=== PATIENT | male | born 1945 | race Caucasian/White ===

== ENCOUNTER 2019-07-30 07:33 | Outpatient (RCR) | payer MEDICARE, SELFPAY ==
--- NOTE | 2019-07-30 07:38 | PTOPEVAL ---
Thank you for referring this patient to [facility]. Please review, sign, date and return this plan of care ISABEL. I agree with and certify that the following plan of care is medically necessary. Referring Physician Date Admitting Provider: Attending Provider: PHYSICIAN NOT ON STAFF Referring Provider: *PT Outpatient Evaluation Start: 07/30/19 07:02 Freq: Status: Active Protocol: Document 07/30/19 07:02 MONIQUE (Rec: 07/30/19 07:29 MONIQUE [email or web address]) Therapy Assessment Status Assessment Status Assessment Status Evaluation Evaluation Information Problem Diagnosis right shoulder bursitis Onset 07/09/19 Subjective Information Pt. reports right shoudler Query Text:As Reported By Patient/ pain began about 3 weeks ago. Family He recalls no particular incident, however states that [place] and requires alot of work . He describes pain with attempting to raise the right arm and on top of the shoulder . He has developed recent left sided neck pain. He reports that pain will wake him if he lays on the right shoulder. He reports that his goal is to develop less right shoulder pain with activity. Prior Level of Function Activity Level (Last 3 Months) Occupation retired Hand Dominance Right Activity of Daily Living Ability Independent Indoor/Home Mobility Independent Community Mobility Independent Stairs Ability Independent Functional Cognition (Planning, Shopping Independent , Taking Medications) Cooking Yes Cleaning Yes Laundry Yes Shopping Yes Driving Yes Pain Assessment Pain Scale Pain Scale Used Numeric (1 - 10) Self Report Pain Assessment Right Shoulder(s) Reported Pain Level 6 Pain Description Sharp Pain Frequency Acute,Continuous Current Pain Intensity 6 Lowest Pain Intensity 6 Greatest Pain Intensity 9 Pain Aggravating Factors Exercise/Activity Pain Relief Interventions Used By Denise Patient Pain Score Pain Score 6: Self Report Upper Extremity Range of Motion General Upper Extremity Range of Motion
--- NOTE | 2019-08-09 09:42 | PCPTNOTE ---
patient called and cancelled due to coronavirus. MARIXA
== END 2019-08-06 17:00 | disposition home or self-care (01) ==
LOC: CHSPT 07:33
DX: M75.51 Bursitis of right shoulder (principal)
CPT/HCPCS: 97014; 97110; 97161; G0283

== ENCOUNTER 2019-12-04 08:54 | Outpatient (RCR) | payer MEDICARE, SELFPAY ==
--- NOTE | 2019-12-04 10:14 | PTOPEVAL ---
Thank you for referring Joey Bob to [facility]. Please review, sign, date and return this plan of care ISABEL. I agree with and certify that the following plan of care is medically necessary. Referring Physician Date Admitting Provider: Attending Provider: PHYSICIAN NOT ON STAFF Referring Provider: *PT Outpatient Evaluation Start: 12/04/19 09:07 Freq: Status: Active Protocol: Document 12/04/19 09:10 [facility] (Rec: 12/04/19 09:42 [facility] [email or web address]) Therapy Assessment Status Assessment Status Assessment Status Evaluation Evaluation Information Problem Diagnosis R shoulder impingement Onset 11/28/19 Additional Evaluation Detail quick dash = 43% functional deficits Subjective Information patient reports he has been Query Text:As Reported By Patient/ having pain in the R serafinudler Family for about 7 months. he reports no injury to the shoulder. he reports gradual onset of worsening pain. he began therapy earlier this year, but reports he stopped due to the coronavirus outbreak. he report he is now ready to [facility]. he report sno change in treatment since his initial bout of therapy. he reports he has increased pain with lifting his R shoulder to his ear, reaching out to his front and side, sleeping, and with trying to lift any weight. Prior Level of Function Comments Additional Prior Level of Function patient reports he is retired. 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 he reports he is able to do all activities, but requires increased time and has significant pain with performance. Pain Assessment Timing of Pain Assessment Timing of Pain Assessment Assessment Pain Scale Pain Scale Used Numeric (1 - 10) Self Report Pain Assessment Right Shoulder(s) Reported Pain Level 7 Pain Description Stabbing Pain Frequency Chronic,Continuous Lowest Pain Intensity 6 Greatest Pain Intensity 8 Pain Score Pain Score 7: Self Report Upper Extremity
== END 2019-12-27 17:02 | disposition home or self-care (01) ==
LOC: CHSPT 08:54
DX: M75.41 Impingement syndrome of right shoulder (principal)
CPT/HCPCS: 97014; 97110; 97140; 97161; G0283

== ENCOUNTER 2024-06-20 09:59 | Outpatient (RCR) | payer MEDICARE, SELFPAY ==
--- NOTE | 2024-06-20 11:11 | OPREHPOC ---
Outpatient Therapy Plan of Care This is a Multidisciplinary Plan of Care that may contain components documented by all disciplines (PT, OT, and ST.) PT Problem 1 PT Problem #1 Knowledge Deficit PT Goal 1 Goal / Goal Update The patient will be independent in a home exercise program. Target Visit 2 PT Problem 2 PT Problem #2 Pain PT Goal 1 Goal / Goal Update The patient will report no greater 1/10 left knee pain with stairs and prolonged ambulation. Target Visit 8 PT Problem 3 PT Problem #3 Impaired Functional Mobility PT Goal 1 Goal / Goal Update The patient will demonstrate 30% or less self perceived disability per the LEFS questionnaire. The patient will demonstrate the ability to ambulate without an AD for 1,000 feet during the 6 minute walk test. The patient will demonstrate the ability to transfer sit to stand for 10 repetitions without use of the UE and no knee pain. Target Visit 8 PT Problem 4 PT Problem #4 Impaired Strength PT Goal 1 Goal / Goal Update The patient will demonstrate 4/5 or greater strength in the left knee and hip to support the knee with ambulation and stair navigation. Target Visit 8 PT Problem 5 PT Problem #5 Impaired Range of Motion PT Goal 1 Goal / Goal Update The patient will demonstrate left knee flexion of 125 degrees or better to improve ability to navigate stairs. Target Visit 8
--- NOTE | 2024-06-20 11:11 | PTOPEVAL1 ---
Assessment and note entered by Echo Fischer, PT Evaluation Information Assessment Status Evaluation Diagnosis L patellofemoral pain ICD-10 Condition Codes (PT) Pain in left knee M25.562,Weakness R53.1 Onset 06/13/24 Subjective Information Joey Bob reports his left knee has given out 3- 4 times over the last month. He reports he was at [facility] for 5 days in early April for a-fib and he was in bed the whole time. He reports he did have the knee give out a few times before the hospitalization as well. He has been using a rollator walker since his knee has been bothering him to prevent falls. He notes he gets sporadic pain in the left kneecap as well. He went to see an work station support specialist and had x-rays taken. He was told he has arthritis but it was not severe. Dr. Arauz thinks he has issues with his kneecap and referred him to PT. Reported Pain Level Pain Score 0: Self Report Assessment PT Clinical Summary Joey Bob presents with left knee weakness and giving out. He has occasional sharp pain around the left patella as well. He has difficulty with walking, stairs, squatting, and lifting. He objectively demonstrates crepitus in the left patellofemoral joint, tenderness on the left distal quadriceps tendon, positive special tests for patellofemoral syndrome, decreased left knee and hip strength, decreased bilateral quadriceps and hamstring flexibility, and decreased left knee flexion AROM. He will benefit from skilled PT to address these limitations. Plan of Care Interventions Electrical Stimulation,Gait Training,Hot Pack/Cold Pack,Intermittent Compression Pump,Manual Therapy ,Neuro Re-education,Patient/Caregiver Education, Therapeutic Activities,Therapeutic Exercise PT Services Indicated Yes Treatment Frequency and 2 times per week for 8 visits Duration These treatments will address the objective and functional deficits as defined above. The patient will be advanced safely and appropriately in order for the patient to progress towards his/her prior level of function. Additional exercises will be introduced and as well as a comprehensive home exercise program upon discharge, if needed, ?to ensure carryover of functional gains achieved in the clinic. This treatment plan has been reviewed and agreement upon by the patient.
--- NOTE | 2024-07-05 09:49 | PCPTNOTE ---
Cancelled sessio due to weather.
--- NOTE | 2024-07-19 11:06 | OPREHPOC ---
Outpatient Therapy Plan of Care This is a Multidisciplinary Plan of Care that may contain components documented by all disciplines (PT, OT, and ST.) PT Problem 1 PT Problem #1 Knowledge Deficit PT Goal 1 Goal / Goal Update The patient will be independent in a home exercise program. Target Visit 2 Progress Met PT Problem 2 PT Problem #2 Pain PT Goal 1 Goal / Goal Update The patient will report no greater 1/10 left knee pain with stairs and prolonged ambulation. Target Visit 8 Progress Not Met PT Problem 3 PT Problem #3 Impaired Functional Mobility PT Goal 1 Goal / Goal Update The patient will demonstrate 30% or less self perceived disability per the LEFS questionnaire. The patient will demonstrate the ability to ambulate without an AD for 1,000 feet during the 6 minute walk test. The patient will demonstrate the ability to transfer sit to stand for 10 repetitions without use of the UE and no knee pain. Target Visit 8 Progress Not Met PT Problem 4 PT Problem #4 Impaired Strength PT Goal 1 Goal / Goal Update The patient will demonstrate 4/5 or greater strength in the left knee and hip to support the knee with ambulation and stair navigation. Target Visit 8 Progress Not Met PT Problem 5 PT Problem #5 Impaired Range of Motion PT Goal 1 Goal / Goal Update The patient will demonstrate left knee flexion of 125 degrees or better to improve ability to navigate stairs. Target Visit 8 Progress Not Met
--- NOTE | 2024-07-19 11:06 | PTOPDC ---
Assessment and note entered by Echo Fischer, PT Evaluation Information Assessment Status Progress Diagnosis L patellofemoral pain ICD-10 Condition Codes (PT) Pain in left knee M25.562,Weakness R53.1 Onset 06/13/24 Subjective Information Joey Bob reports his left knee continues to have pain and it feels like it is going to give out on him. He has not actually had it give out though. He plans to call and make a follow up appointment with his physician due to continued pain. He has been experiencing a sharp and shooting pain in the left knee when he twists his foot in or out. He continues to use a rollator walker when he goes out in public to prevent falls . Reported Pain Level Pain Score 6: Self Report Assessment PT Clinical Summary Joey Bob has completed 7 skilled PT visits for left knee pain. He is reporting no overall change in left knee pain and he still gets a sharp and shooting pain when he twists his foot while walking. He has not fallen but is afraid he will if his knee gives out. He objectively demonstrates left lateral patella tracking with knee extension , pain with strength testing for left knee flexion and extension, decreased left knee AROM, impaired gait, and tenderness at the lateral and distal quadriceps. He plans to follow up with his referring physician regarding ongoing pain and limitations. Plan of Care PT Services Indicated No
== END 2024-07-19 17:24 | disposition home or self-care (01) ==
LOC: CHSPT 09:59
DX: M25.562 Pain in left knee (principal); R53.1 Weakness
CPT/HCPCS: 97110; 97140; 97161

== ENCOUNTER 2025-03-31 17:17 | Emergency (ER) | payer MEDICARE, SELFPAY ==
--- NOTE | ~2025-03-31 | CT_ITS ---
EXAMINATION: CT cervical spine wo con COMPARISON: None HISTORY: Fall, posterior head injury/ headache/ contusion TECHNIQUE: Axial images were obtained through the spine without IV contrast. Coronal, sagittal reconstruction images were obtained from the axial views. CT scan performed using dose optimization techniques including the following automated exposure control; adjustment of mA and/or kV; use of iterative reconstruction technique. Automatic exposure control was used to reduce radiation dose. Permanent radiation dose record is archived to PACS. FINDINGS: The vertebral heights are intact. No fracture or subluxation. There is severe loss of disc height at C3-4 and C5-6 with moderate to severe canal and foraminal stenosis, outpatient MRI is recommended Soft tissues unremarkable. Impression: No acute abnormality. Reviewed, dictated and finalized at location P. ING COACH Impression: No acute abnormality.
--- NOTE | ~2025-03-31 | XR_ITS ---
XR thoracic spine 2V Indication: Fall/chest pain/upper back pain on inspiration Comparison: None Findings: Moderate osteopenia. Moderate loss of vertebral height, no fracture or subluxation. Moderate loss of disc height throughout. Soft tissues unremarkable Impression: No acute abnormality. Reviewed, dictated and finalized at location P. RD WASTE HANDLER Impression: No acute abnormality.
--- NOTE | ~2025-03-31 | XR_ITS ---
EXAMINATION: XR hip RT 2V w AP pelvis, 03/31/2025 17:40 ASP NET C DEVELOPER HISTORY: fall, Rt. hip pain COMPARISON: No comparisons available. Findings: No acute fracture or malalignment. No significant degenerative changes. Soft tissues unremarkable. Impression: No acute fracture or malalignment. Reviewed, dictated and finalized at location P. NET C DEVELOPER Impression: No acute fracture or malalignment.
--- NOTE | ~2025-03-31 | XR_ITS ---
EXAMINATION: XR chest 2V, 03/31/2025 17:40 VISITING TEACHER HISTORY: Fall/chest pain/upper back pain on inspiration COMPARISON: No comparisons available. Technique: 2 views obtained. Findings: The lungs are clear, no effusion. No pneumothorax. Heart is normal size. Mediastinal and hilar contours are within normal limits. Bony thorax no acute abnormality. Impression: No acute cardiopulmonary abnormality. Reviewed, dictated and finalized at location P. TING TEACHER Impression: No acute cardiopulmonary abnormality.
--- NOTE | ~2025-03-31 | CT_ITS ---
EXAMINATION: CT brain wo mariano, 03/31/2025 17:40 PAIL BAILER HISTORY: Fall, posterior head injury/ headache/ contusion COMPARISON: No comparisons available. Technique: Axial images obtained of the brain without contrast. One or more of the following dose reduction techniques were used: automated exposure control, adjustment of the mA and/or kV according to patient size, use of iterative reconstruction technique. Findings: There is a midline focus of subdural hemorrhage abutting the falx on the left side measuring 3 mm. Small amount of subdural hemorrhage layers along the left tentorium. There is no midline shift or mass effect. No additional extra-axial fluid collections. No acute infarct. Mastoid air cells unremarkable. Severe maxillary, ethmoidal and frontal sinusitis with severe sphenoid sinusitis noted with underlying polyp formation suspected. No acute fracture is identified. Right posterior subcutaneous soft tissue swelling is noted with subcutaneous hemorrhage. Impression: Trace midline focus of subdural hemorrhage. No midline shift. No acute fracture. Results discussed with the referring clinician immediately Reviewed, dictated and finalized at location P. BAILER Impression: Trace midline focus of subdural hemorrhage. No midline shift. No acute fracture . Results discussed with the referring clinician immediately
--- OUTSIDE RECORDS SUMMARY | 2025-03-31 17:19 | XMS_ITS | Encounter Summary ---
Author Organization [facility] Healthcare Address [address] [place] [address] Care Team Providers Care Weaving Professor Name Role Phone Lucille Crawford MD Primary Care Provider Lucille Crawford MD Primary Care Provider David Vegas MD Primary Care Provider [phone] Deysi Hein NP Unavailable David Vegas MD Primary Care Provider Encounter Details Date Type Department Care Team (Late st Contact Info) Description 08/04/2020 Telephone [facility] [address] [place] [address] Echo De, Social History Tobacco Use Types Packs/Day Years Used Date Smoking Tobacco: Former Cigarettes 2 31 1 959 - 1990 Smokeless Tobacco: Never Alcohol Use Standard Drinks/Week Comments Yes 12 (1 standard drink = 0.6 oz pu re alcohol) PHQ-2 Answer Date Recorded PHQ-2 Total Score 0 02/04/2020 Sex and Gender Information Value Date Recorded Sex Assigned at Not on file Legal Sex Male 7:49 PM FRUIT ROOM HAND Gender Identity Not on file Sexual Orientation Not on file documented as of this encounter Functional Status * BP Location Answer Date of Assessment Author Left arm 08/05/2020 2:39 PM Jr Bell RMA * BP Location Answer Date of Assessment Author Left arm 08/05/2020 2:39 PM CDT AlvaJr anderson RMA documented as of this encounter Plan of Treatment Not on file documented as of this encounter Visit Diagnoses Not on filedocumented in this encounter Additional Health Concerns Infection Onset Date Last Indicated Resolved Time COVID: Suspected 04/18/2022 04/18/2022 04/18/2022 5:08 PM FRUIT ROOM HAND COVID: Suspected 04/18/2022 04/18/2022 04/19/2022 2:03 AM FRUIT ROOM HAND COVID: Suspected 01/20/2023 01/20/2023 01/20/2023 11:35 AM CDT COVID19 01/20/2023 01/20/2023 01/30/2023 3:05 AM CDT COVID: Recovered Comment:Added based on recent COVID infection. 01/30/2023 01/31/2023 04/30/2023 3:[address] COVID: Suspected 05/17/2023 05/17/2023 05/17/2023 1:17 PM FRUIT ROOM HAND documented as of this encounter Care Teams Weaving Professor Relationship Specialty Start Date End Date Lucille Crawford MD PCP - General Internal Medicine 05/08/19 07/17/23 Lucille Crawford MD PCP - General Internal Medicine 07/18/23 08/06/24 David Vegas MD [address] [place] [address] PCP - General Internal Medicine 08/07/24 08/08/24 David Vegas MD [address] [place] [address] PCP - General Internal Medicine 08/09/24 Deysi Hein NP [address] [place] [address] Nurse Practitioner Internal Medicine 08/07/24 documented as of this encounter
--- OUTSIDE RECORDS SUMMARY | 2025-03-31 17:19 | XMS_ITS | Encounter Summary ---
Author Organization [facility] Address [address] [place] [address] Phone Care Team Providers Care Trimming Operator Name Role Phone Mariya Gunderson MD Primary Care Provider [phone] Miles Rodriguez MD Primary Care Provider [phone] Lucille Crawford MD Primary Care Provider Lucille rCawford MD Primary Care Provider David Vegas MD Primary Care Provider [phone] Deysi Hein NP Unavailable David Vegas MD Primary Care Provider [phone] Encounter Details Date Type Department Care Team (Latest Contact Info) Description 04/24/2017 Orders Only [facility] CONVERSION Scanning, Provider Social History Tobacco Use Types Packs/Day Years Used Date Smoking Tobacco: Former Sex and Gender Information Value Date Recorded Sex Assigned at Not on file Legal Sex Male 7:49 PM GREENHOUSE SUPERINTENDENT Gender Identity Not on file Sexual Orientation Not on file documented as of this encounter Plan of Treatment Not on file documented as of this encounter Procedures Procedure Name Priority Date/Time Associated Diagnosis Comments VASCULAR LABORATORY REPORT 04/24/2017 1:53 PM GREENHOUSE SUPERINTENDENT documented in this encounter Results * VASCULAR LABORATORY REPORT (04/24/2017 1:53 PM GREENHOUSE SUPERINTENDENT) Anatomical Region Laterality Modality Ultrasound us Provider Scanning CV VASCULAR PROCEDURES Final R esult documented in this encounter Visit Diagnoses Not on filedocumented in this encounter Additional Health Concerns Infection Onset Date Last Indicated Resolved Time COVID: Suspected 04/18/2022 04/18/2022 04/18/2022 5:08 PM GREENHOUSE SUPERINTENDENT COVID: Suspected 04/18/2022 04/18/2022 04/19/2022 2:03 AM GREENHOUSE SUPERINTENDENT COVID: Suspected 01/20/2023 01/20/2023 01/20/2023 11:35 AM CDT COVID19 01/20/2023 01/20/2023 01/30/2023 3:05 AM CDT COVID: Recovered Comment:Added based on recent COVID infection. 01/30/2023 01/31/2023 04/30/2023 3:[address] COVID: Suspected 05/17/2023 05/17/2023 05/17/2023 1:17 PM GREENHOUSE SUPERINTENDENT documented as of this encounter Care Teams Trimming Operator Relationship Specialty Start Date End Date Mariya Gunderson MD [address] [facility] [address] [place] [address] PCP - General 04/21/17 04/27/17 [place] [address] [facility] [address] [place] [address] PCP - General 04/28/17 05/07/19 [place] [address] [facility] [address] [place] [address] PCP - General Internal Medicine 05/08/19 07/17/23 [place] [address] [facility] [address] [place] [address] PCP - General Internal Medicine 07/18/23 08/06/24 David Vegas MD [address] [place] [address] PCP - General Internal Medicine 08/07/24 08/08/24 David Vegas MD [address] [facility] [address] [place] [address] PCP - General Internal Medicine 08/09/24 Deysi Hein NP [address] [facility] [address] [place] [address] Nurse Practitioner Internal Medicine 08/07/24 documented as of this encounter
--- OUTSIDE RECORDS SUMMARY | 2025-03-31 17:19 | XMS_ITS | Encounter Summary ---
Author Organization [facility] Healthcare Address [address] [place] [address] Care Team Providers Care Newswriter Name Role Phone Lucille Crawford MD Primary Care Provider David Vegas MD Primary Care Provider [phone] Deysi Hein NP Unavailable David Vegas MD Primary Care Provider [phone] Encounter Details Date Type Department Care Team (Late st Contact Info) Description 05/07/2024 Telephone [facility] [address] [place] [address] Becki Marcos RN Social History Tobacco Use Types Packs/Day Years Used Date Smoking Tobacco: Former Cigarettes 2 1 959 - 1989 Passive Smoke Exposure: Never Smokeless Tobacco: Never Alcohol Use Standard Drinks/Week Comments Yes 12 (1 standard drink = 0.6 oz pu re alcohol) AUDIT-C Answer Date Recorded Q1: How often do you have a drink containing alcohol? Never 04/23/2024 Q2: How many drinks containi ng alcohol do you have on a typical day when you are drinking? Patient does not drink Q3: How often do you have si x or more drinks on one occasion? Never 04/23/2024 PHQ-2 Answer Date Recorded PHQ-2 Total Score (If total score is 3 or more points, staff should administer the PHQ-9) 0 04/23/2024 Personal Safety Answer Date Recorded Have you ever been in or are you currently in a harmful physical or emotional relationship or is someone making you feel afraid or unsafe? Denies 05/09/2024 Sex and Gender Information Value Date Recorded Sex Assigned at Not on file Legal Sex Male 7:49 PM SKATE MAKER Gender Identity Not on file Sexual Orientation Not on file documented as of this encounter Functional Status * Question Answer Date of Assessment Author MAP (mmHg) 87 05/09/2024 10:55 AM SKATE MAKER Aurelia Bob, SYLVESTER * [place]var[place] Fall Risk Question Answer Date of Assessment Author History of Falling 0 05/09/2024 7:[address] Will RN Secondary Diagnosis 15 05/09/2024 7:[address] Horta RN Ambulatory Aids 0 05/09/2024 7:[address] Max RN Intravenous Therapy/Heparin/Saline Lock 20 05/09/2024 7:[address] Wild RN Gait/Transferring 0 05/09/2024 7:[address] Will RN Mental Status 0 05/09/2024 7:[address] Kraus RN Morse Fall Risk Score (Score >= 45 places fall precaution order) 35 05/09/2024 7:26 AM Isabel Will RN Prior Fall Event (Autopopulated from EMR) None found 05/09/2024 7:[address] Will RN * Fall Risk Interventions Question Answer Date of Assessment Author All Low Fall Interventions Applied Yes 05/09/2024 7:[address] Will RN All Moderate Fall Interventions Applied No 05/09/2024 7:[address] Will RN All Moderate Fall Risk Interventions EXCEPT: Fall risk sign with education;Gait belt at bedside;PT eval requested or obtained;OT eval requested or obtained 05/09/2024 7:[address] Will RN All High Fall Risk Interventions Applied No 05/09/2024 7:[address] Will RN All High Risk Interventions EXCEPT: Bed alarm;Chair alarm;Fall risk sign with education 05/09/2024 7:[address] Will RN Reason For Exception(s) not utilized in [facility] 05/09/2024 7:[address] Will RN Reason For Exception(s) not utilized in [facility] 05/09/2024 7:[address] Will RN * Question Answer Date of Assessment Author Skin Color Appropriate for ethnicity 05/09/2024 9:58 AM Silas Cabrera RN Skin Condition/Temp Warm;Dry 05/09/2024 9:58 AM Silas Deshpande RN * Fall Risk Interventions Question Answer Date of Assessment Author All Low Fall Interventions Applied Yes 05/09/2024 7:[address] Will RN All Moderate Fall Interventions Applied No 05/09/2024 7:[address] Will RN All Moderate Fall Risk Interventions EXCEPT: Fall risk sign with education;Gait belt at bedside;PT eval requested or obtained;OT eval requested or obtained 05/09/2024 7:[address] Will RN All High Fall Risk Interventions Applied No 05/09/2024 7:[address] Wlil RN All High Risk Interventions EXCEPT: Bed alarm;Chair alarm;Fall risk sign with education 05/09/2024 7:[address] Will RN Reason For Exception(s) not utilized in [facility] 05/09/2024 7:[address] Will RN Reason For Exception(s) not utilized in [facility] 05/09/2024 7:[address] Will RN * ADL Screening Question Answer Date of Assessment Author Patient's Vision Adequate to Safely Complete Daily Activities Yes 05/09/2024 7:35 AM Isabel Will, SYLVESTER Patient's Judgement Adequate to Safely Complete Daily Activities Yes 05/09/2024 7:35 AM Isabel Will, RN Patient's Memory Adequate to Safely Complete Daily Activities Yes 05/09/2024 7:35 AM Isabel Will, RN Patient Able to Express Needs/Desires Yes 05/09/2024 7:35 AM Isabel Will, RN Dressing Independent 05/09/2024 7:[address] Ramsay, RN Grooming Independent 05/09/2024 7:[address]ay, RN Feeding Independent 05/09/2024 7:[address] Ramsay, RN Bathing Independent 05/09/2024 7:[address] Ramsay, RN Toileting Independent 05/09/2024 7:[address] Ramsay, RN In/Out Bed Independent 05/09/2024 7:[address] Ramsay, RN Walks in Home Independent 05/09/2024 7:[address] Kraus RN Weakness of Legs None 05/09/2024 7:[address] Ding, RN Weakness of Arms/Hands None 05/09/2024 7:[address] Will, SYL[place]STER Hearing - Right Ear Functional 05/09/2024 7:[address] Horta, [place]STER Hearing - Left Ear Functional 05/09/2024 7:[address] Will RN Dominant hand? Right 05/09/2024 7:[address] Rodriguez RN Decline in ADLs in last 2 weeks? No 05/09/2024 7:35 AM Isabel Will, RN * Assistive Devices Question Answer Date of Assessment Author Assistive Devices/DME Dentures upper;Dentures lower;CPAP/BiPAP 05/09/2024 7:[address] Will, SYLVESTER documented as of this encounter Plan of Treatment Not on file documented as of this encounter Visit Diagnoses Not on filedocumented in this encounter Care Teams Newswriter Relationship Specialty Start Date End Date Lucille Crawford MD PCP - General Internal Medicine 07/18/23 08/06/24 David Vegas MD [address] [place] [address] PCP - General Internal Medicine 08/07/24 08/08/24 David Vegas MD [address] [place] [address] PCP - General Internal Medicine 08/09/24 Deysi Hein NP [address] [facility] [address] [place] [address] Nurse Practitioner Internal Medicine 08/07/24 documented as of this encounter
--- OUTSIDE RECORDS SUMMARY | 2025-03-31 17:19 | XMS_ITS | Encounter Summary ---
Author Organization [facility] Address [address] [place] [address] Phone Care Team Providers Care Schedule Planning Manager Name Role Phone Lucille Crawford MD Primary Care Provider Lucille Crawford MD Primary Care Provider David Vegas MD Primary Care Provider [phone] Deysi Hein NP Unavailable David Vegas MD Primary Care Provider [phone] Encounter Details Date Type Department Care Team (Latest Contact Info) Description 02/26/2020 Orders Only MANDUJANO NL SLEEP Scanning, Provider Social History Tobacco Use Types Packs/Day Years Used Date Smoking Tobacco: Former Cigarettes 2 31 1 959 - 1989 Smokeless Tobacco: Never Alcohol Use Standard Drinks/Week Comments Yes 12 (1 standard drink = 0.6 oz pu re alcohol) PHQ-2 Answer Date Recorded PHQ-2 Total Score 0 02/04/2020 Sex and Gender Information Value Date Recorded Sex Assigned at Not on file Legal Sex Male 7:49 PM 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 Gender Identity Not on file Sexual Orientation Not on file documented as of this encounter Functional Status * BP Location Answer Date of Assessment Author Right arm 02/27/2020 11:59 AM CDT Fidel Malone RMA * BP Location Answer Date of Assessment Author Right arm 02/27/2020 11:59 AM CDT Fidel Malone RMA documented as of this encounter Plan of Treatment Not on file documented as of this encounter Procedures Procedure Name Priority Date/Time Associated Diagnosis Comments SLEEP LAB/STUDY - RESULT 02/26/2020 documented in this encounter Results * SLEEP LAB/STUDY - RESULT (02/26/2020) us Provider Scanning Final Result documented in this encounter Visit Diagnoses Not on filedocumented in this encounter Additional Health Concerns Infection Onset Date Last Indicated Resolved Time COVID: Suspected 04/18/2022 04/18/2022 04/18/2022 5:08 PM 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 COVID: Suspected 04/18/2022 04/18/2022 04/19/2022 2:03 AM 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 COVID: Suspected 01/20/2023 01/20/2023 01/20/2023 11:35 AM CDT COVID19 01/20/2023 01/20/2023 01/30/2023 3:05 AM CDT COVID: Recovered Comment:Added based on recent COVID infection. 01/30/2023 01/31/2023 04/30/2023 3:[address] COVID: Suspected 05/17/2023 05/17/2023 05/17/2023 1:17 PM 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 documented as of this encounter Care Teams Schedule Planning Manager Relationship Specialty Start Date End Date Lucille Crawford MD PCP - General Internal Medicine 05/08/19 07/17/23 Lucille Crawford MD PCP - General Internal Medicine 07/18/23 08/06/24 David Vegas MD [address] [place] [address] PCP - General Internal Medicine 08/07/24 08/08/24 David Vegas MD [address] [address] PCP - General Internal Medicine 08/09/24 Deysi Hein NP [address] [facility] [address] [place] [address] Nurse Practitioner Internal Medicine 08/07/24 documented as of this encounter
--- OUTSIDE RECORDS SUMMARY | 2025-03-31 17:19 | XMS_ITS | Clinical Summary ---
Author Organization [facility] Address [address] [place] [address] Phone Care Team Providers Care Employment Educational Coord Name Role Phone Lucille Crawford MD Primary Care Provider [phone] Allergies Active Allergy Reactions Criticality Noted Date Comments Diazepam Delirium Medium 12/12/2013 Hydrochlorothiazide Rash Low 12/12/2013 Medications sildenafil (REVATIO) 20 mg Tablet Take 1 Tablet (20 mg) by mouth 1 time daily as needed for erectile dysfunction. 20 Tablet 11 08/31/2016 3:25 PM CDT 7 Active atorvastatin (LIPITOR) 40 mg tablet Take 1 Tablet (40 mg) by mouth Daily LATE. 90 Tablet 3 8 Active Additional Information Patient taking differently:40 mg OralDAILY AT BEDTIME, Reported on 01/19/2018 carvedilol (COREG) 3.125 mg tablet Take 3.125 mg by mouth 2 times daily with meals. Active ascorbic acid (VITAMIN C ORAL) Take by mouth. Active amLODIPine (NORVASC) 5 mg tablet Take 1 Tablet (5 mg) by mouth daily. 90 Tablet 1 8 Active irbesartan (AVAPRO) 150 mg tablet Take 150 mg by mouth daily at bedtime. 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 Active triamcinolone acetonide (KENALOG) 0.1 % CreamIndications :Venous stasis dermatitis, unspecified laterality APPLY TO AFFECTED AREAS OF BOTH LEGS TWO TIMES A DAY 80 Gram 1 9 Active fluconazole (DIFLUCAN) 100 mg tablet Take 1 Tablet (100 mg) by mouth daily. 7 Tablet 9 Active nystatin (NYSTOP) 100,000 unit/gram powder Apply powder to affected area twice daily. 30 Gram 1 0 Active Active Problems Problem Noted Date Diagnosed Date Obstructive sleep apnea 04/12/2017 Overview (04/12/2017): See consultation [facility] scanned 04/12/17. APAP = 4-8 cm pressure Left rotator cuff tear 10/04/2016 Adhesive capsulitis of left shoulder 10/04/2016 Radial styloid tenosynovitis of left hand 2014 Arthritis of both hands 01/23/2015 Coronary atherosclerosis of [place] coronary vess el 07/11/2014 Emphysema of lung 07/11/2014 Aortic atherosclerosis 07/09/2014 Pulmonary nodule seen on imaging study, repeat 04/24/2014 Overview (07/27/2015): CT 07/2015 IMPRESSION: Stable pulmonary emphysema and a couple small pulmonary nodules 6 mm nodule LLL, nodule in linugla 6 mm - 04/17/[address] abd/pelvis CT chest 07/08/14 - repeat JULY IMPRESSION: Pulmonary nodules in the left lower lobe and lingula. If prior films become available, comparison would be useful. Continued followup is recommended. Atherosclerotic calcifications are present in the aorta and coronary arteries. Emphysema. Benign prostatic hyperplasia with urinary retent ion 01/23/2014 Gross hematuria 01/23/2014 Overview (07/13/2016): CT urogram in 06/2016 revealed aortoiliac stent with AAA, enlarged prostate with asymmetric calcifications, mass effect on the bladder, bladder thickening. cystoscopy in 06/2016 did reveal a negative bladder. He did have a large prostate with significant median lobe with intravesical protrusion. The prostate was 4.5-5 cm and obstructing. Urethra was unremarkable. Gilbert's syndrome 01/04/2014 Essential hypertension, benign 12/12/2013 Elevated PSA 12/12/2013 Overview (07/13/2016): Prostate ultrasound and biopsy in 04/2015. PV 71.49 mL. PSAD 0.17. Path-Benign, some inflammation Prior biopsies by Dr. Castellanos and Dr. Pelaez reportedly benign. Sees Dr. Ellison Prostate MRI in 06/2016 with Central gland with 6 x 6 x 10 mm low T2 signal without diffusion restriction at rightward aspect of base of the prostate Pi-Rads score 2. Abdominal aortic aneurysm 12/12/2013 Overview (12/12/2013): Sees Dr. Casa Bah, sees yearly Carotid artery disease 12/12/2013 Overview (12/12/2013): S/p bilateral carotid endarterectomy Mixed hyperlipidemia 12/12/2013 Resolved Problems Problem Noted Date Diagnosed Date Resolved Date Urgency of urination 01/23/2014 017 BPH (benign prostatic hypertrophy) 12/12/2013 07/11/2014 Obesity 12/12/2013 11/04/2016 Immunizations Immunization Administration Dates Next Due (PNEUMOVAX 23)(50 YRS UP) PN EUMOCOCCAL POLYSACCHARIDE (PPV23) 0.5 ML, IM 12/12/2013 (PREVNAR 13)(6 WKS UP) PNEUM OCOCCAL CONJUGATE (PCV13) 0.5 ML, IM 04/08/2015 Influenza Seasonal Unspecifi ed Formulation IM 02/21/2017,02/25/2016,02/24/2014 Influenza Vaccine High Dose 65+ Yrs IM 8,04/08/2015 Family History Medical History Relation Name Comments Heart Disease Brother Heart Disease Father Stroke Mother Relation Name Status Comments Brother Father Mother Social History Tobacco Use Types Packs/Day Years Used Date Smoking Tobacco: Former Cigarettes 2 33 1 953 - 1986 Smokeless Tobacco: Never Tobacco Cessation:Counseling Given: Yes Alcohol Use Standard Drinks/Week Comments Yes 14 (1 standard drink = 0.6 oz pu re alcohol) Sex and Gender Information Value Date Recorded Sex Assigned at Not on file 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 Gender Identity Not on file Sexual Orientation Not on file Occupation Industry Job Start Date Job End Date Not on file Not on file Not on file Not on file Not on file Not on file Not on file Not on file Last Filed Vital Signs Vital Sign Reading Time Taken Comments Blood Pressure 138/86 09/12/2018 1:09 PM CDT Pulse 68 09/12/2018 1:09 PM CDT Temperature 36.7 C (98 F) 08/18/2020 11:30 AM CDT Respiratory Rate 16 02/01/2018 11:13 PM CDT Oxygen Saturation 97% 02/02/2018 8:14 AM CDT Inhaled Oxygen Concentration - - Weight 103.4 kg (228 lb) 08/18/2020 11:30 AM CDT Height 185.4 cm (6' 1) 08/18/2020 11:30 AM CDT Body Mass Index 30.08 08/18/2020 11:30 AM CDT Plan of Treatment Health Maintenance Due Date Last Done Comments DTAP/TDAP/TD VACCINES (1 - Tdap) 1962 ZOSTER VACCINE (1 of 2) 1993 RSV VACCINE (60+ or ) (1 - 1-dose 75+ series) 2018 COLORECTAL SCREENING 03/21/2020 03/21/2015 INFLUENZA VACCINE (#1) 2024 8, 02/21/2017, 02/25/2016, Additional history exists PNEUMOCOCCAL VACCINE 50+ YEARS Completed 04/08/2015 , 12/12/2013 Medical Devices Implanted Type Area Shank Turner Device Identifier Shelf Expiration Date Model / Serial / Lot Abdominal Aorta Stent-01/22/2010 Implanted:01/23/20 10 (Quantity not on file) Stent / TFLE 20-56 / Description:Zenith Endovascu lar Graft by [employer] -Product Catalog #[id number] [id number] TFLE 20-56 09/17/16 Insurance MEDICARE PART A AND B [facility] [id number] RX [employer] Commercial Advance Directives For more information, please contact: [phone] * Full Code (Latest Code Status on File) Date Activated Date Inactivated Comments 01/31/2018 4:09 PM 02/02/2018 11:54 AM * Full Code Date Activated Date Inactivated Comments 03/21/2015 9:30 AM 03/21/2015 1:21 PM Care Teams Employment Educational Coord Relationship Specialty Start Date End Date Lucille Crawford MD PCP - General Internal Medicine 08/03/20
[2025-03-31 17:20] VITALS: BP 162/88; PULSE 65; RESP 12; TEMP 36.4; O2SAT 96
--- OUTSIDE RECORDS SUMMARY | 2025-03-31 17:20 | XMS_ITS | Encounter Summary ---
Author Organization [facility] Address [address] [place] [address] Phone Care Team Providers Care Supervisor Winter Name Role Phone Lucille Crawford MD Primary Care Provider Lucille Crawford MD Primary Care Provider David Vegas MD Primary Care Provider Deysi Hein NP Unavailable David Vegas MD Primary Care Provider [phone] Encounter Details Date Type Department Care Team (Late st Contact Info) Description 07/20/2019 Telephone [facility] Medicine Scheduling [facility] [place] [address] Lenny Vogel Social History Tobacco Use Types Packs/Day Years Used Date Smoking Tobacco: Former Cigarettes 2 31 1 959 - 1990 Smokeless Tobacco: Never Alcohol Use Standard Drinks/Week Comments Yes 12 (1 standard drink = 0.6 oz pu re alcohol) PHQ-2 Answer Date Recorded PHQ-2 Score 0 04/09/2019 Sex and Gender Information Value Date Recorded Sex Assigned at Not on file 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 Gender Identity Not on file Sexual Orientation Not on file documented as of this encounter Plan of Treatment Not on file documented as of this encounter Visit Diagnoses Not on filedocumented in this encounter Additional Health Concerns Infection Onset Date Last Indicated Resolved Time COVID: Suspected 04/18/2022 04/18/2022 04/18/2022 5:08 PM WINDOW TRIMMER COVID: Suspected 04/18/2022 04/18/2022 04/19/2022 2:03 AM WINDOW TRIMMER COVID: Suspected 01/20/2023 01/20/2023 01/20/2023 11:35 AM CDT COVID19 01/20/2023 01/20/2023 01/30/2023 3:05 AM CDT COVID: Recovered Comment:Added based on recent COVID infection. 01/30/2023 01/31/2023 04/30/2023 3:[address] COVID: Suspected 05/17/2023 05/17/2023 05/17/2023 1:17 PM WINDOW TRIMMER documented as of this encounter Care Teams Supervisor Winter Relationship Specialty Start Date End Date Lucille Crawford MD PCP - General Internal Medicine 05/08/19 07/17/23 Lucille Crawford MD PCP - General Internal Medicine 07/18/23 08/06/24 David Vegas MD [address] [place] [address] PCP - General Internal Medicine 08/07/24 08/08/24 David Vegas MD [address] [place] [address] PCP - General Internal Medicine 08/09/24 Deysi Hein NP [address] [place] [address] Nurse Practitioner Internal Medicine 08/07/24 documented as of this encounter
--- OUTSIDE RECORDS SUMMARY | 2025-03-31 17:20 | XMS_ITS | Data Portability ---
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 Name Role Phone DUKE CRAWFORD Primary Care Provider Assessment Encounter Date Assessment Date Assessment LastModified by Organization Details LastModified Time 05/26/2020 05/26/2020 Eruption, extremities with dermal papules, few coalescent into annular plaques several excoriated papules forearms and dorsal hands discussed recommend hold topical steroids and recommend return for punch bx discussed ddx includes granuloma annulare (favored) and less likely cutaneous lymphoma rec rtc for punch bx L elbow rtc punch bx Not available 05/26/2020 11:20:29 05/29/2020 05/29/2020 eruption, L elbow punch bx performed ddx: granuloma annulare vs eczema vs less likely cutaneous lymphoma return in 2 wks for suture removal Not available 05/31/2020 20:52:47 06/12/2020 06/12/2020 allergic contact dermatitis, extremities discussed unclear trigger for flares recommend clobetasol 0.05 cr BID x 2 wks with flares recommend change to Vanicream lotion/cleanse r and continue free and clear detergent recommend referral to Dr Smith for skin allergy testing if continuing to flare copy note to Dr Luis fuentes Not available 06/12/2020 12:52:09 Plan of Treatment Reminders Order Date Submit Date Provider Last Modified By Organization Details Last Modified Time Details Appointments None record ed. Lab pathol ogy, skin 021 05/29/19 21 [email or web address] [facility], [address], [place], [address], 13:49:46 Referral None record ed. Procedures None record ed. Surgeries None record ed. Imaging None record ed. Medication Orders None record ed. Patient TargetsNo targets recorded. Patient InstructionsNo instructions recorded. Reason for Referral None Reported. Results Created Date Observation Date Name Description Value Unit Range Abnormal Flag Note LastModifiedBy Organization Detail LastModifiedTime Result Notes None recorded. Problems Name Problem SNOMED Code Status Onset Date Resolution Date Notes Provider Name and Address Organization Details Recorded Time Abdominal aortic aneurysm 576870297 Active 021 Lisa Nix MD [address] [facility], [address], [place], [address], TORRI Nix MD 21:44:53 Problem Notes None recorded. Procedures Surgical History Date Name Laterality Status Provider Name and Address Organization Details Recorded Time 1 Suture removal completed Sandro Nix MD 06/12/2020 11:36:15 Punch biopsy single completed Leatha Nix MD 05/29/2020 11:49:29 Imaging Results None recorded. Procedure Notes None recorded. Medical Equipment None Reported. Allergies Allergen ID Allergen Name Allergen Category Reaction Reaction Severity Criticality Documentation Date Start Date Code Code System Note Provider Name and Address Organization Details Recorded Time 5291 Valium medicatio n Not available Not available Not available 05/26/202074304 2 RxNorm TORRI Schmidt MD 10:54:16 5292 hydrochlo rothiazid e medicatio n Not available Not available Not available 05/26/2020 5487 RxNorm TORRI Schmidt MD 10:54:44 Medications Name Sig Start Date Stop Date Status Note LastModified by Organization Details LastModified Time carvedilol 6.25 mg tablet Take 1 tablet twice a day by oral route. active Not Available Not Available No t Available irbesartan 300 mg tablet Take 1 tablet every day by oral route. active Not Available Not Available No t Available Vitamin C active Not Available Not Darya ilable Not Available clobetasol active Not Available Not Av ailable Not Available amlodipine 5 active Not Available Not Av ailable Not Available Centrum Silver active Not Available Not Available Not Available Vitals Date Recorded Body temperature Provider Name a nd Address Organization Details Last Updated DateTime 05/26/2020 97.8 [degF] Leatha Cynthia [facility]ello 05/26/2020 10:59:34 Date Recorded Body temperature Provider Name a nd Address Organization Details Last Updated DateTime 06/12/2020 97.2 [degF] Sandro Li [facility] 06/12/2020 11:34:00 Social History Question Answer Notes LastModified by [employer] Details LastModified Time Tobacco Smoking Status Former Smoker TORRI Schmidt MD 05/26/2020 10:56:48 In The 14 Days Before Symptom Onset, Have You Had Close Contact With A Laboratory-confir med COVID-19 While That Case Was Ill? No Information not available 05/26/2020 In The 14 Days Before Symptom Onset, Have You Had Close Contact With A Person Who Is Under Investigation For COVID-19 While That Person Was Ill? No Information not available 05/26/2020 Have You Been To An Area Known To Be High Risk For COVID-19? No Information not available 05/26/2020 Does Patient Have Any Fever, Cough, Sore Throat Or New Shortness Of Breath? No Information not available 05/26/2020 What Was The Date Of Your Most Recent Tobacco Screening? 05/26/2020 Information not available 05/26/2020 How Much Tobacco Do You Smoke? No Information not available 05/26/2020 Sun Exposure Occasional Information not available 05/26/2020 Do You Use Sunscreen Routinely? Yes Information not available 05/26/2020 Tanning Bed Exposure No Information not available 05/26/2020 How Many Years Have You Smoked Tobacco? 33 Information not available 05/26/2020 Sex: Unknown Functional Status Question Answer Note LastModified by [employer] Details LastModified Time What is your level of alcohol consumption? Moderate Information not available 05/26/2020 Do you or have you ever used smokeless tobacco? Never used smokeless tobacco Information not available 05/26/2020 Do you or have you ever used e-cigarettes or vape? Never used electronic cigarettes Information not available 05/26/2020 Mental Status None recorded. Family History Relationship Description Onset Age of this Age Resolved Age Notes LastModified by Organization Details LastModified Time Father Hypertensive disorder Not available 2020 10:56:36 Mother Hypertensive disorder Not available 2020 10:56:36 Medical History Condition Response Diabetes N Bleeding Disorder N Arthritis Y Hyperthyroidism N Defibrillator N Cancer N Stroke N Hypothyroidism N Asthma N Lupus N HIV/AIDS N Pacemaker N Anemia N Psoriasis Y Hepatitis N Heart Disease N Hypertension Y Past Encounters Encounter ID Performer Location Encounter Start Date Encounter Closed Date Diagnosis/Indication Diagnosis SNOMED-CT Code Diagnosis ICD10 Code Diagnosis IMO Codes Diagnosis Note [id number] Lisa Nix MD Main Office [address] [place] [phone] 05/26/2020 10:52:05 05/26/2020 11:26:30 Eruption 119209011 R21 [id number] Lisa Nix MD Main Office [address] [place] [phone] 05/29/2020 11:24:20 05/29/2020 12:25:57 Eruption [id number] R21 [id number] Lisa Nix MD Main Office [address] [place] [phone] 06/12/2020 11:25:18 06/12/2020 12:11:11 Removal of suture 46125994 Z48.02 Allergic c ontact dermatitis 583791763 L23.9 Health Concerns Section Related Observation LastModified by Organization Detai ls LastModified Time None Recorded Concern Status LastModified by Organization Details LastModified Time None Recorded Advance Directives Directive None Recorded Payers Insurance Date Sequence Insurance Name Policy Number Policy Espinoza Covered Member ID Espinoza Member ID Guarantor Name 05/26/2020 1 [place] Joey Bob [id number] Joey Bob 06/17/2020 2 [employer] (MEDICARE SUPPLEMENT) Joey Bob [id number] Bob Notes Date Note Type Note Provider Name and Address Organization Details Recorded Time 05/26/2020 text/html ROS as noted in the HPI COVID-19 protocol. Pt waited in car prior to appt, called in for visit for checkin and rooming. Patient screening questions performed during call in car: No fever, cough, loss of taste or smell, or shortness of breath. Patient denies current diagnosis or pending testing of COVID-19 or recent exposure to any individual with known or current testing for COVID-19. Patient and staff masked for duration of visit. Pt does not have a history of any skin cancer and has never been seen by a pole peeler before. Rash/bumpsX 1 yearComes and goesLocations: elbows down bilateral arms, knee down bilateral legsItchingDr. Crawford-Script Clobetasol 0.05% cream which helped but then a few days later it is backlast used the clobetasol cream for the past few dayscontinues to get new areashe is not sure if this is caused by his carvedilol or other medicationno other areas involved Lisa Nix MD [address] [facility], [address], [place], [address], TORRI Nix MD 05/31/2020 21:46:49 05/29/2020 text/html ROS as noted in the HPI COVID-19 protocol. Pt waited in car prior to appt, called in for visit for checkin and rooming. Patient screening questions performed during call in car: No fever, cough, loss of taste or smell, or shortness of breath. Patient denies current diagnosis or pending testing of COVID-19 or recent exposure to any individual with known or current testing for COVID-19. Patient and staff masked for duration of visit. Biopsy Punch BiopsyL elbow Lisa Nix MD [address] [facility], [address], [place], [address], TORRI Nix MD 05/31/2020 20:52:56 06/12/2020 text/html ROS as noted in the HPI COVID-19 protocol. Pt waited in car prior to appt, called in for visit for checkin and rooming. Patient screening questions performed during call in car: No fever, cough, loss of taste or smell, or shortness of breath. Patient denies current diagnosis or pending testing of COVID-19 or recent exposure to any individual with known or current testing for COVID-19. Patient masked during visit. followup and suture removal L elbow he notes he continues to get these bumps on the skin coming and goingthey are improved with his clobetasol cream 0.05 but still getting guerrero flares on the body, limited to the forearms/wrists and also lower legsworks on the farm but no known triggersuses Dove cleanser and lotion. using free and clear detergent.itchy and bothersome when they are there. Lisa Nix MD [address] [facility], [address], [place], [address], [facility] [place] Lisa iNx MD 06/14/2020 19:13:14
--- OUTSIDE RECORDS SUMMARY | 2025-03-31 17:20 | XMS_ITS | Clinical Summary ---
Author Organization [facility] Main [facility] s Address [address] [place] [address] Care Team Providers Care Orthophotography Technician Name Role Phone Deysi Hein NP Unavailable David Vegas MD Primary Care Provider [phone] Allergies Active Allergy Reactions Criticality Noted Date Comments Chlorthalidone Hives,Itching,Rash High 05/29/2018 Severe Diazepam Rash,Delusions,Nathaniel lucinations Medium 12/12/2013 Hydrochlorothiazide Rash Medium 12/12/2013 Other Rash Medium 09/15/2020 Allergy patch tested positive: Ethylenediamine dihydrochloride & fragrance mix both 1+ Medications apixaban (ELIQUIS) 5 mg tablet Take 1 tablet (5 mg total) by mouth 2 (two) times a day 180 tablet 3 025 Active irbesartan (AVAPRO) 300 mg tablet TAKE ONE TABLET BY MOUTH DAILY 90 tablet 3 025 Active amLODIPine (NORVASC) 5 mg tablet 1 tablet po BID 180 tablet 3 025 Active sotaloL (BETAPACE) 120 mg tablet TAKE ONE TABLET BY MOUTH TWICE A DAY 180 tablet 3 025 Active atorvastatin (LIPITOR) 10 mg tablet TAKE ONE TABLET BY MOUTH DAILY 90 tablet 3 025 Active papaverine-ph entolamine-al prostadil (TRIMIX) solution injection 0.15 mL by intracavernosal route once for 1 dose 5 mL 11 Active Additional Information Patient not taking.Reported on 03/12/2025 cephalexin (KEFLEX) 500 mg capsuleIndica tions:Punctur e wound of right middle finger without foreign body with damage to nail, initial encounter Take 1 capsule (500 mg total) by mouth 2 (two) times a day 14 capsule Active Additional Information Patient not taking.Reported on 03/12/2025 metoprolol tartrate (LOPRESSOR) 50 mg immediate release tablet TAKE ONE TABLET BY MOUTH TWICE A DAY 180 tablet 3 Active metoprolol tartrate (LOPRESSOR) 50 mg immediate release tablet TAKE ONE TABLET BY MOUTH TWICE A DAY 180 tablet 2 025 2024 Discontinued Active Problems Problem Noted Date Diagnosed Date Acute pain of left knee 06/05/2024 Assessment & Plan (06/05/2024 11:42 AM SUPPLY CHAIN DESIGN MANAGER): Acute onset of pain and instability after multiple falls. No reported pop or locking sensation. Pain localized to the anterior and lateral aspects of the knee. Strength and range of motion testing limited by pain. -Order knee x-ray to rule out fracture. -Consider further imaging (MRI) for soft tissue injury if x-ray is negative. -Advise patient to use an RITA wrap or knee brace for support and stabilization. -Continue use of assistive device for ambulation. -Rest, Ice, Elevate. Can take OTC medication for pain PRN. Elevated transaminase level 05/27/2024 Assessment & Plan (05/29/2024 8:01 AM SUPPLY CHAIN DESIGN MANAGER): Liver function tests improve. Continue current dose of atorvastatin. Likely related to atrial fibrillation rapid ventricular response. Follow-up as an outpatient. Assessment & Plan (05/28/2024 11:52 AM SUPPLY CHAIN DESIGN MANAGER): Liver function tests improve. Continue current dose of atorvastatin. Likely related to atrial fibrillation rapid ventricular response. Follow-up as an outpatient. Assessment & Plan (05/27/2024 9:28 AM SUPPLY CHAIN DESIGN MANAGER): Possibly related to afib and RVR, hepatic congestion, medication (atoravstatin) or other. Atorvastatin decreased to 10 mg Repeat cmp ordered for today Elevated liver function tests 05/26/2024 Assessment & Plan (05/26/2024 8:56 AM SUPPLY CHAIN DESIGN MANAGER): The patient with elevated transaminase levels. Asymptomatic incidental discovery of elevated transaminase levels. This is a new finding. This could relate to AFib and hepatic congestion. This could relate to medication including Tylenol or atorvastatin Recommend decreasing atorvastatin to 10 mg a day Recommend decreasing Tylenol input Recommend repeating CMP. If persistent transaminase elevation then recommend right upper quadrant ultrasound. Persistent atrial fibrillation 04/23/2024 Assessment & Plan (05/29/2024 8:01 AM SUPPLY CHAIN DESIGN MANAGER): Successful cardioversion this morning. Plan to continue sotalol 120 mg twice a day. Recommend decreasing the metoprolol dose to metoprolol tartrate 50 mg b.i.d.. Follow heart rate and blood pressure as an outpatient. Please provide the patient 30 day supply of the sotalol. My office will arrange EKG for him in 1 week to see if he was maintain sinus rhythm. Okay for the patient to be discharged home today. Instructions were given to the patient prior to the cardioversion. Assessment & Plan (05/28/2024 11:51 AM SUPPLY CHAIN DESIGN MANAGER): The patient with AFib and rapid ventricular response. Rate control overall improved. Tolerating sotalol 120 mg bid. Continue this dose today and follow telemetry and EKG for rate, rhythm, and Qtc. I d/w housestaff. Repeat metabolic profile reviewed. Improved liver function tests. Creatinine stable. Potassium stable. EKG I reviewed personally stable QT interval. The patient was scheduled for cardioversion for 05/29. I discussed with the house staff. Assessment & Plan (05/27/2024 9:26 AM SUPPLY CHAIN DESIGN MANAGER): The patient with AFib and rapid ventricular response. Rate control overall improved. Tolerating sotalol 120 mg bid. Continue this dose today and follow telemetry and EKG for rate, rhythm, and Qtc. I d/w housestaff. Repeat comprehensive metabolic profile.--I have ordered for today Please schedule cardioversion for 05/29. Assessment & Plan (05/26/2024 8:54 AM SUPPLY CHAIN DESIGN MANAGER): The patient with AFib and rapid ventricular response. Recommend increasing metoprolol tartrate 75 mg b.i.d. Continue sotalol 80 mg this morning. If EKG okay then increase sotalol to 120 mg b.i.d. for tonight's dose. Follow EKG 1 hour to 2 hours after each sotalol dose for QT corrected. Please contact me if any concern about QT interval or dosing of sotalol Repeat comprehensive metabolic profile. Please schedule cardioversion for 05/29. Bilateral hearing loss 04/13/2021 BMI 29.0-29.9,adult 04/09/2019 Assessment & Plan (08/22/2024 12:01 PM CDT): BMI Follow-up includes: nutrition counseling, exercise counseling, and education provided. Assessment & Plan (08/07/2024 10:54 AM CDT): BMI Follow-up includes: nutrition counseling, exercise counseling, and education provided. Assessment & Plan (06/05/2024 11:08 AM SUPPLY CHAIN DESIGN MANAGER): BMI Follow-up includes: nutrition counseling, exercise counseling, and education provided. Assessment & Plan (04/23/2024 8:35 AM SUPPLY CHAIN DESIGN MANAGER): BMI Follow-up includes: nutrition counseling, exercise counseling, and education provided. Assessment & Plan (04/20/2023 12:13 PM SUPPLY CHAIN DESIGN MANAGER): BMI Follow-up includes: nutrition counseling, exercise counseling, and education provided. Assessment & Plan (04/13/2021 1:18 PM SUPPLY CHAIN DESIGN MANAGER): BMI Follow-up includes: nutrition counseling, exercise counseling and education provided. Assessment & Plan (02/04/2020 3:48 PM CDT): BMI Follow-up includes: nutrition counseling, exercise counseling and education provided. Assessment & Plan (06/14/2019 11:53 AM SUPPLY CHAIN DESIGN MANAGER): BMI Follow-up includes: nutrition counseling, exercise counseling and education provided. Assessment & Plan (05/08/2019 10:26 AM SUPPLY CHAIN DESIGN MANAGER): BMI Follow-up includes: nutrition counseling, exercise counseling and education provided. Assessment & Plan (04/09/2019 12:44 PM SUPPLY CHAIN DESIGN MANAGER): BMI Follow-up includes: nutrition counseling, exercise counseling and education provided. History of abdominal aortic aneurysm (AAA) 04/09 Assessment & Plan (04/20/2023 3:10 PM SUPPLY CHAIN DESIGN MANAGER): Status post endovascular repair and iliac aneurysm repair. Continue atorvastatin and aspirin. Assessment & Plan (04/09/2019 1:09 PM SUPPLY CHAIN DESIGN MANAGER): S/p endovascular repair and more recently right iliac aneurysm repair Continue follow-up with vascular surgery Continue statin Chronic idiopathic constipation 04/09/2019 Assessment & Plan (04/13/2021 2:32 PM SUPPLY CHAIN DESIGN MANAGER): Continue miralax and dulcolax prn Assessment & Plan (04/09/2019 1:14 PM SUPPLY CHAIN DESIGN MANAGER): Continue Dulcolax MiraLax p.r.n. 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 Continue aspirin and statin for secondary prevention. Assessment & Plan (04/20/2023 3:10 PM SUPPLY CHAIN DESIGN MANAGER): Had repair of the iliac artery. Continue aspirin and statin for secondary prevention. Assessment & Plan (04/13/2021 12:26 PM SUPPLY CHAIN DESIGN MANAGER): S/p repair Obstructive sleep apnea syndrome in adult 2016 Assessment & Plan (05/29/2024 8:00 AM SUPPLY CHAIN DESIGN MANAGER): Continue treatment of sleep apnea. Assessment & Plan (05/28/2024 11:51 AM SUPPLY CHAIN DESIGN MANAGER): Continue treatment of sleep apnea. Assessment & Plan (04/13/2021 2:33 PM SUPPLY CHAIN DESIGN MANAGER): Continue follow up with sleep med Assessment & Plan (02/04/2020 6:00 PM CDT): Follow up with sleep med Continue CPAP Assessment & Plan (04/09/2019 1:11 PM SUPPLY CHAIN DESIGN MANAGER): Continue CPAP use in follow-up with sleep medicine Emphysema of lung 07/11/2014 Assessment & Plan (04/23/2024 2:21 PM SUPPLY CHAIN DESIGN MANAGER): Currently is not using any inhalers. Stable at this time. Assessment & Plan (04/20/2023 3:09 PM SUPPLY CHAIN DESIGN MANAGER): Currently is not using any inhalers. Stable at this time. Pulmonary nodule seen on imaging study 4 Overview (04/18/2022): CT 07/2015 IMPRESSION: Stable pulmonary emphysema and [...] prostatic hyperplasia with urinary retent ion 01/23/2014 Assessment & Plan (04/20/2023 3:08 PM SUPPLY CHAIN DESIGN MANAGER): Patient uses adalafil 20 mg as needed. Urinary symptoms have been stable. Gross hematuria 01/23/2014 Overview (04/18/2022): CT urogram in 06/2016 revealed aortoiliac stent with AAA, enlarged prostate with asymmetric calcifications, mass effect on the bladder, bladder thickening. cystoscopy in 06/2016 did reveal a negative bladder. He did have a large prostate with significant median lobe with intravesical protrusion. The prostate was 4.5-5 cm and obstructing. Urethra was unremarkable. Gilbert's syndrome 01/04/2014 Carotid artery disease 12/12/2013 Overview (04/18/2022): S/p bilateral carotid endarterectomy Assessment & Plan (04/23/2024 2:21 PM SUPPLY CHAIN DESIGN MANAGER): Patient is status post bilateral carotid endarterectomy. No bruits noted. On aspirin daily and atorvastatin 40 mg. Assessment & Plan (04/20/2023 3:08 PM SUPPLY CHAIN DESIGN MANAGER): Patient is status post bilateral carotid endarterectomy. No bruits noted. On aspirin daily and atorvastatin 40 mg. Essential hypertension, benign 12/12/2013 Assessment & Plan (06/05/2024 11:44 AM SUPPLY CHAIN DESIGN MANAGER): Stable on current regimen of Irbesartan and Amlodipine. -Continue current medications. Assessment & Plan (05/29/2024 8:01 AM SUPPLY CHAIN DESIGN MANAGER): Blood pressure stable continue current therapy Assessment & Plan (05/28/2024 11:51 AM SUPPLY CHAIN DESIGN MANAGER): Blood pressure stable continue current therapy Assessment & Plan (05/27/2024 9:26 AM SUPPLY CHAIN DESIGN MANAGER): Blood pressure stable continue current therapy Assessment & Plan (05/26/2024 8:55 AM SUPPLY CHAIN DESIGN MANAGER): Blood pressure stable continue current therapy Assessment & Plan (04/23/2024 2:21 PM SUPPLY CHAIN DESIGN MANAGER): BP 130/84 (BP Location: Right arm, Patient Position: Sitting) Pulse 118 Temp 36.5 C (97.7 F) Resp 22 Ht 185.4 cm (6' 0.99) Wt 75.8 kg (167 lb) SpO2 95% BMI 22.04 kg/m Amlodipine 5 mg, Avapro 300 mg carvedilol6.25 mg b.i.d.. Assessment & Plan (04/20/2023 3:09 PM SUPPLY CHAIN DESIGN MANAGER): BP 130/80 (BP Location: Right arm, Patient Position: Sitting) Pulse 67 Resp 16 Ht 185.4 cm (6' 1) Wt 101.2 kg (223 lb) SpO2 98% BMI 29.42 kg/m Amlodipine 5 mg, Avapro 300 mg carvedilol6.25 mg b.i.d.. Mixed hyperlipidemia 07/30/2013 Assessment & Plan (06/05/2024 11:44 AM SUPPLY CHAIN DESIGN MANAGER): Dose reduced by hospitalist to 10mg every day. Will continue to follow labs. Follow with cardiology. -Continue Atorvastatin 10mg. Assessment & Plan (04/23/2024 2:22 PM SUPPLY CHAIN DESIGN MANAGER): Atorvastatin 40 mg daily. Eat healthy and exercise. Assessment & Plan (04/20/2023 3:13 PM SUPPLY CHAIN DESIGN MANAGER): Atorvastatin 40 mg daily. Eat healthy and exercise. Assessment & Plan (04/13/2021 2:32 PM SUPPLY CHAIN DESIGN MANAGER): Lipid panel today Continue atorvastatin 40 Assessment & Plan (02/04/2020 6:00 PM CDT): Continue atorvastatin Assessment & Plan (04/09/2019 1:10 PM SUPPLY CHAIN DESIGN MANAGER): Lipid panel 10/2018 with LDL 80 Continue atorvastatin Obstructive sleep apnea 07/30/2013 Overview (06/15/2023): DIAGNOSIS: Obstructive sleep apnea PROCEDURE PERFORMED: (Robert 06/03/23) Right hypoglossal nerve stimulator implantation Generator placement right chest wall Lead placement right intercostal muscle Assessment & Plan (05/26/2024 8:54 AM SUPPLY CHAIN DESIGN MANAGER): Continue therapy. Assessment & Plan (04/23/2024 2:22 PM SUPPLY CHAIN DESIGN MANAGER): Patient uses CPAP. Assessment & Plan (04/20/2023 3:13 PM SUPPLY CHAIN DESIGN MANAGER): Patient uses CPAP. Varicose veins of both legs with edema 0 Assessment & Plan (04/23/2024 2:22 PM SUPPLY CHAIN DESIGN MANAGER): Elevate legs when sitting. Encounter for preventive health examination 12/21 Assessment & Plan (04/23/2024 2:21 PM SUPPLY CHAIN DESIGN MANAGER): Patient has been educated regarding preventative screening, immunizations, physical activity goes and management of chronic health conditions. Healthy lifestyle recommended, including regular exercise (daily aerobic & twice weekly resistance training), prudent diet, calcium & vitamin D supplementation, colonoscopy (starting @ age 50 for average risk person),, periodic blood pressure monitoring, & bone-density testing (starting @ age 65 in average-risk person). For males PSA beginning at the age of 45 if warranted. Assessment & Plan (04/20/2023 3:09 PM SUPPLY CHAIN DESIGN MANAGER): Patient has been educated regarding preventative screening, immunizations, physical activity goes and management of chronic health conditions. Healthy lifestyle recommended, including regular exercise (daily aerobic & twice weekly resistance training), prudent diet, calcium & vitamin D supplementation, colonoscopy (starting @ age 50 for average risk person),, periodic blood pressure monitoring, & bone-density testing (starting @ age 65 in average-risk person). For males PSA beginning at the age of 45 if warranted. Resolved Problems Problem Noted Date Diagnosed Date Resolved Date A-fib 05/25/2024 08/22/2024 Assessment & Plan (06/05/2024 11:43 AM SUPPLY CHAIN DESIGN MANAGER): -Follow up with cardiology. -Continue current medications. -EKG today as scheduled with hospital. Dizziness and giddiness 05/24/202305/23 Bilateral hand pain 04/13/2021 06/05/19 25 Assessment & Plan (04/13/2021 2:35 PM SUPPLY CHAIN DESIGN MANAGER): Likely OA Continue tylenol prn Recommend voltaren gel xrays today Consider ortho referral if needed Lower abdominal pain 02/04/2020 025 Assessment & Plan (02/04/2020 6:01 PM CDT): Likely due to constipation Recommended increased fluid intake, Dulcolax daily and miralax prn Itching 06/14/2019 06/05/2024 Assessment & Plan (06/14/2019 9:57 PM SUPPLY CHAIN DESIGN MANAGER): Possibly xerosis, allergy. Less likely thyroid dysfunction. Given perioral paresthesias will check calcium/magnesium. Recommended unscented/alcohol free soap and lotion. Pat dry after shower and apply moisturizer. Rash 05/08/2019 02/04/2020 Assessment & Plan (05/08/2019 10:48 AM SUPPLY CHAIN DESIGN MANAGER): Likely eczema/atopic dermatitis No improvement with hydrocort or keflex Avoid scented or alcohol containing skin products. 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 Cartwright Encounter for surgical after care following surgery of circulatory system 04/18/2017 06/05/2024 Adhesive capsulitis of left shoulder 10/04/2016 06/05/2024 Left rotator cuff tear 10/04/201606/05 Daytime somnolence 04/21/2016 Fatigue 04/21/2016 06/05/2024 Restless sleeper 04/21/2016 06/05/2024 Snoring 04/21/2016 04/20/2023 Vivid dream 04/21/2016 06/05/2024 Palpitations 04/05/2016 04/20/2023 Arthritis of both hands 01/23/201505/23 Radial styloid tenosynovitis of left hand 01/23/2015 06/05/2024 Coronary atherosclerosis of havasupai coronary vessel 07/11/2014 06/05/2024 Abnormal finding in urine 06/05/2013 Hematuria 08/29/2012 06/05/2024 Elevated PSA 09/29/2010 06/05/2024 Overview (04/18/2022): Prostate ultrasound and biopsy in 04/2015. PV 71.49 mL. PSAD 0.17. Path-Benign, some inflammation Prior biopsies by Dr. Castellanos and Dr. Pelaez reportedly benign. Sees Dr. Ellison Prostate MRI in 06/2016 with Central gland with 6 x 6 x 10 mm low T2 signal without diffusion restriction at rightward aspect of base of the prostate Pi-Rads score 2. Organic erectile dysfunction 09/29/2010 06/05/2024 Hypertension 01/12/2010 04/23/2024 Assessment & Plan (04/13/2021 2:32 PM SUPPLY CHAIN DESIGN MANAGER): BP well controlled Continue amlodipine 5, coreg 6.25 bid, irbesartan 300 Assessment & Plan (02/04/2020 4:32 PM CDT): Increase Coreg to 12.5 BID Continue amlodipine 5, irbesartan 300 Assessment & Plan (04/09/2019 1:10 PM SUPPLY CHAIN DESIGN MANAGER): BP slightly above goal Encouraged patient to follow low-salt diet Continue irbesartan, Coreg, and amlodipine Counseled patient on proper way to check blood pressure readings at home Abdominal aortic aneurysm 01/12/2010 Overview (04/18/2022): Sees cintia Ernandez yearly Encounters Date Type Department Care Team Description 03/25/2025 Telephone [facility] [address]th [place] [address] [place] [address] En Cartwright MD Patient assistance Brandon 03/12/2025 10:15 AM CDT Office Visit [facility] Medicine Surgery [address] 8th [place] [address] [place] [address] Jose Daily MD Itching of lesion of skin (Primary Dx) 03/03/2025 2:15 PM CDT Office Visit [facility] Medical [facility] [place] [address] [place] [phone] Uzma Warren NP Puncture wound of right middle finger without foreign body with damage to nail, initial encounter (Primary Dx); Subungual hematoma of finger of right hand, initial encounter 02/26/2025 10:40 AM CDT Office Visit [facility] - [facility] Urology [address] 11th [place] [address] [place] [address] Mahesh Redding NP Vasculogenic erectile dysfunction, unspecified vasculogenic erectile dysfunction type (Primary Dx) 02/22/2025 Telephone [facility] Vascular Surgery [address] [facility] [address] [place] [address] Zena Huff NP 02/21/2025 10:15 AM CDT Ancillary Procedure [facility] Vascular Lab at the [facility] [address] [address] 8th [place] [address] [place] [phone] Swelling of both lower extremities 02/19/2025 11:45 AM CDT Office Visit [facility] Vascular Surgery [address] [facility] [address] [place] [address] Zena Huff NP Swelling of both lower extremities (Primary Dx) 02/19/2025 11:00 AM CDT Ancillary Procedure [facility] Vascular Lab Vascular Surgery [address] [place] [address] [address] [place] [address] Encounter for surgical aftercare following surgery on the circulatory system 02/19/2025 9:25 AM CDT - 02/19/2025 11:59 PM CDT Hospital Encounter [facility] Imaging [address] [place] [address] Encounter for surgical aftercare following surgery on the circulatory system Discharge Disposition: Discharge to home or self care 02/18/2025 1:40 PM CDT Office Visit [facility] Urology [address] [facility] [address] [place] [phone] Mahesh Redding NP Elevated PSA (Primary Dx); Erectile dysfunction, unspecified erectile dysfunction type 02/14/2025 Results Follow-Up [facility] Urology [address] [facility] Office [facility] [address] [place] [phone] Mahesh Redding NP PSA screen 02/12/2025 11:30 AM CDT Lab [facility] [address] [place] [address] Elevated PSA 02/11/2025 Orders Only [facility] - [facility] Urology [address] [place] [address] [address]th [place] [address] [place] [phone] Mahesh Redding NP Elevated PSA (Primary Dx) 02/11/2025 Telephone [facility] U[facility] [address] [place] [address] [address] [place] [phone] Danna Pringle 02/11/2025 Telephone [facility] [address] [place] [address] [address] [place] [phone] Justice Pickens from Last 3 Months Immunizations Immunization Administration Dates Next Due Influenza, Quadrivalent, Hig h Dose, Preservative Free, Intrr 04/20/2023 Influenza, Trivalent, High D ose, Split, Preservative Free, Intramuscular 04/23/2024,02/20/2018,04/08/2015 Influenza, Trivalent, IM (MDV) 02/21/2017,2015,02/24/2014 Influenza, Unspecified 02/20/2023(Deferr ed: Patient Refused),02/20/2022(Deferred: Patient Refused),03/12/2021,03/12/2020, 019 Moderna SARS-CoV-2 Monovalen t Vaccination (12+ YRS) 07/02/2020,06/04/2020 Pneumococcal Conjugate PCV 13 04/08/2015 Pneumococcal Polysaccharide PPV23 12/12/2013 Tdap 03/03/2025,07/06/2018 Surgical History Surgery Date Site/Laterality Comments CATARACT EXTRACTION W/ INTRAOCULAR LENS IMPLANT 05/23/2007 - 05/22/2008 Bilateral CAROTID ENARTERECTOMYY 03/23/2010 Right Right carotid endarterectomy and patch repair CARDIAC CATHETERIZATION 05/23/1997 - 05/22/1998 OTHER SURGICAL HISTORY 05/23/1964 - 05/22/1965 N/A rib removal TONSILLECTOMY 05/23/1965 - 05/22/1966 CYSTOSCOPY 05/23/2013 - 06/22/2013 TRANSURETHRAL RESECTION OF PROSTATE 01/21/2018 - 02/19/2018 ABDOMINAL AORTIC ANEURYSM REPAIR W/ ENDOLUMINAL GRAFT 01/22/2010 Endovascular repair of abdominal aortic aneurysm using a Zenith endovascular graft patch repair left comon femoral artery CAROTID ENDARTERECTOMY 07/03/2010 Left left carotid endarterectomy with patch repair ILIAC ARTERY ANEURYSM REPAIR 05/26/2018 Right right limg of exculder endovascular graft , iliac branch graft into the right extrenal iliac, right hypogastric branch extension with exandable stents and examanab le stent within the right ililc limb at the site of graft overlab using an express balloon expandable stent. OTHER SURGICAL HISTORY 12/31/2022 Drug Induced Sleep Endoscopy COLONOSCOPY last one 02/2015 Medical History Medical History Date Comments Varicose veins of lower extremity with pain Abdominal aortic aneurysm without rupture Essential (primary) hypertension Carotid artery stenosis Hyperlipidemia BPH (benign prostatic hyperplasia) Sleep apnea Doesn't wear CPA P Hematuria Erectile dysfunction Family History Medical History Relation Name Comments Heart attack Brother 1 Family history of myocardial infarction - (Added by TW Conv) Coronary artery disease Brother 2 FH: CABG (coronary artery bypass surgery) - (Added by TW Conv) Heart attack Father Family history of myocardial infarction - (Added by TW Conv) Stroke Mother Family history of cerebrovascular accident - (Added by TW Conv)/Family history of cerebrovascular accident - (Added by TW Conv) Anesthesia problems Neg Hx Relation Name Status Comments Brother 1 (Age 58) fatal [place] Brother 2 Father (Age 72) fatal [place] Mother Social History Tobacco Use Types Packs/Day Years Used Date Smoking Tobacco: Former Cigarettes 2 31 1 959 - 1989 Passive Smoke Exposure: Never Smokeless Tobacco: Never Tobacco Cessation:Counseling Given: Not Answered Alcohol Use Standard Drinks/Week Comments Yes 12 (1 standard drink = 0.6 oz pu re alcohol) AUDIT-C Answer Date Recorded Q1: How often do you have a drink containing alcohol? Never 08/07/2024 Q2: How many drinks containi ng alcohol do you have on a typical day when you are drinking? Patient does not drink Q3: How often do you have si x or more drinks on one occasion? Never 08/07/2024 PHQ-2 Answer Date Recorded PHQ-2 Total Score (If total score is 3 or more points, staff should administer the PHQ-9) 0 08/22/2024 PHQ-9 Answer Date Recorded PHQ-9 Total Score 0 06/05/2024 Personal Safety Answer Date Recorded Have you ever been in or are you currently in a harmful physical or emotional relationship or is someone making you feel afraid or unsafe? 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 Gender Identity Not on file Sexual Orientation Not on file Last Filed Vital Signs Vital Sign Reading Time Taken Comments Blood Pressure 112/74 03/12/2025 10:01 AM CDT Pulse 67 03/12/2025 10:01 AM CDT Temperature 36.4 C (97.6 F) 03/03/2025 2:10 PM CDT Respiratory Rate 16 03/03/2025 2:10 PM CDT Oxygen Saturation 95% 03/12/2025 10:01 AM CDT Inhaled Oxygen Concentration - - Weight 101.6 kg (224 lb) 03/12/2025 10:01 AM CDT Height 185.4 cm (6' 1) 03/12/2025 10:01 AM CDT Body Mass Index 29.55 03/12/2025 10:01 AM CDT Plan of Treatment Health Maintenance Due Date Last Done Comments Hepatitis B Screening 1963 Covid-19 Vaccine ( season) 2025 04/05/2023, 12/18/2021, 05/19/2021, Additional history exists Influenza Vaccine (#1) 2025 , 04/20/2023, 11/12/2022, Additional history exists Well Visit 65+ 04/23/2025 04/23/2024, 03/24, 04/13/2021 Depression Screening 08/22/2025 08/22/2024, 08/07/2024, 06/05/2024, Additional history exists Fall Risk Assessment 08/22/2025 08/22/2024, 08/07/2024, 06/05/2024, Additional history exists Zoster Vaccine (1 of 2) 10/22/2025 Post poned from 1993 (Insurance / Financial) DTaP/Tdap/Td Vaccine (3 - Td or Tdap) 03/03/2035 03/03/2025, 07/06/2018 Pneumococcal vaccine 65+ Completed 023, 04/08/2015, 12/12/2013 Abdominal Aortic Aneurysm (AAA) Screen Completed 02/19/2025, 01/25/2024, 01/25/2024, Additional history exists Medical Devices Implanted Type Area Emergency Crew Supervisor Device Identifier Shelf Expiration Date Model / Serial / Lot [employer]l [employer] [id number] Excluder 18mm 14.5-16.5mm 9.5cm Stent Abrasion Resistant - [id number] - [id number] Implanted:Qty: 1 on 05/26/2018 by Rod Cormier MD at [facility] Graft Right: Abdomen [employer] [id number] 02/24/2021 [id number] / [id number] / Description:Right Common Cheryl ac [employer] [id number] [place] Excluder 10mm 10cm Branch Component Iliac Graft Endovascular - [id number] - [id number] Implanted:Qty: 1 on 05/26/2018 by Rod Cormier MD at [facility] Graft Right: Abdomen [employer] 12/05/2020 [id number] / [id number] / Description:Right Common Cheryl ac Artery [employer] Lead Neurostimulator Sleep Apnea Thoracic Permanent Respiratory Sensing Inspire 43cm 4340 - [id number] Implanted:Qty: 1 on 06/03/2023 by Babak Jnoes MD at [facility] Other - see comments Right: Chest [employer] 03/21/2026 4340 / [id number] / Description:Implant pause pe rformed Implant times approximate [employer] Inspire 3 Electrode Cuff Tunnel Kahlil Lead Neurostimulator Sterile 4063 - [id number] Implanted:Qty: 1 on 06/03/2023 by Babak Jones MD at [facility] Other - see comments Right: Neck [employer] 12/13/2025 4063 / [id number] / Description:Implant pause pe rformed Implant times approximate [employer] Inspire Generator 3028 - [id number] Implanted:Qty: 1 on 06/03/2023 by Babak Jones MD at [facility] Other - see comments Right: Chest [employer] 03/14/2026 3028 / [id number] / Description:Implant pause pe rformed Implant times approximate Wl [employer] [id number] [place] Viabahn 10mm 13mm 8fr 29mm 135cm Balloon Expandable - [id number] - [id number] Implanted:Qty: 1 on 05/26/2018 by Rod Cormier MD at [facility] Stent Right: Abdomen Wl [employer] [id number] 01/31/2021 [id number] / [id number] / Description:Right Internal I liac Artery [employer] Balloon Expandable Implanted:Qty: 1 on 05/26/2018 by Rod Cormier MD at [facility] Stent Right: Abdomen Wl [employer] [id number] 03/22/2020 / [id number] / Description:Right External I liac Artery [employer]is [id number] Express Ld [employer] 10mm 37mm 75cm Otw Radiopaque - [id number] - [id number] Implanted:Qty: 1 on 05/26/2018 by Rod Cormier MD at [facility] Stent Right: Abdomen [employer] [id number] 01/04/2021 [id number] / [id number] / [id number] Description:Right External I liac Artery Pins N/A: Mouth Description:4 pins in lower denture Procedures Procedure Name Priority Date/Time Associated Diagnosis Comments US VENOUS REFLUX BILATERAL Schedule Routine, Read Routine (OP Routine) 02/21/2025 10:56 AM CDT Swelling of both lower extremities US CAROTIDS DUPLEX BILATERAL Schedule Routine, Read Routine (OP Routine) 02/19/2025 11:29 AM CDT Encounter for surgical aftercare following surgery on the circulatory system CTA ABDOMEN PELVIS W WO CONTRAST Schedule Routine, Read Routine (OP Routine) 02/19/2025 9:33 AM CDT Encounter for surgical aftercare following surgery on the circulatory system POC ISTAT Routine 02/19/2025 9:33 AM CDT PSA SCREEN Routine 02/12/2025 11:28 AM CDT Elevated PSA from Last 3 Months Results * US Venous Reflux Bilateral (02/21/2025 10:56 AM CDT) Anatomical Region Laterality Modality Vascular Bilateral Ultrasound 02/21/2025 10:1 4 AM CDT Narrative 02/21/2025 12:10 PM CDT [facility] - Department of Vascular Surgery, Vascular Laboratory [address] [place] [address] Lower Extremity Venous Reflux Duplex Report Patient Name: EZEKIEL GAUTHIER : 1945 (79y 9m) Study Date: 02/21/2025 10:14:29 AM Sex: M Tech: TT Location: [facility] Ref Provider: ZENA HUFF Quality: Adequate Order Provider: ZENA HUFF PROCEDURES: Vascular Report: Lower extremity venous valvular insufficiency or reflux evaluation is performed with rapid cuff inflator. Veins evaluated are sapheno-femoral junction, great saphenous, common femoral, femoral, profunda femoral, popliteal, sapheno-popliteal and small saphenous veins bilaterally. Criteria for superficial vein reflux is retrograde blood flow greater than 0.5 seconds. INDICATIONS: M79.89 Other specified soft tissue disorders. MEASUREMENTS: Right Leg Value Units Left Leg Value Units Rt Sapheno-Femoral Junction 0.74 cm Lt Sapheno-Femoral Junction 0.77 cm Rt Great Saphenous Thigh - Proximal 0.44 cm Lt Great Saphenous Thigh - Proximal 0.44 cm Rt Great Saphenous Thigh - Mid 0.40 cm Lt Great Saphenous Thigh - Mid 0.36 cm Rt Great Saphenous Thigh - Distal 0.36 cm Lt Great Saphenous Thigh - Distal 0.43 cm Rt Great Saphenous Knee 0.28 cm Lt Great Saphenous Knee 0.33 cm Rt Great Saphenous Calf - Proximal 0.30 cm Lt Great Saphenous Calf - Proximal 0.26 cm Rt Great Saphenous Calf - Mid 0.18 cm Lt Great Saphenous Calf - Mid 0.23 cm Rt Great Saphenous Calf - Distal 0.29 cm Lt Great Saphenous Calf - Distal 0.25 cm Rt Sapheno-Popliteal Junction Does not connect to cm Lt Sapheno-Popliteal Junction Does not connect to cm Rt Small Saphenous Proximal 0.29 cm Lt Small Saphenous Proximal 0.33 cm Rt Small Saphenous Mid 0.23 cm Lt Small Saphenous Mid 0.38 cm Rt Small Saphenous Distal 0.23 cm Lt Small Saphenous Distal 0.34 cm Rt CFV Reflux Time 0.00 ms Lt CFV Reflux Time 0.00 ms Rt SFJ Reflux Time 0.00 ms Lt SFJ Reflux Time 0.00 ms Rt GSV Thigh Reflux Time 0.00 ms Lt GSV Thigh Reflux Time 0.00 ms Rt PFV Reflux Time 0.00 ms Lt PFV Reflux Time 0.00 ms Rt FV Mid Reflux Time 0.00 ms Lt FV Mid Reflux Time 0.00 ms Rt GSV Knee Reflux Time 5633.00 ms Lt GSV Knee Reflux Time 0.00 ms Rt GSV Below Knee Reflux Time 4533.00 ms Lt GSV Below Knee Reflux Time 0.00 ms Rt Popliteal Reflux Time 0.00 ms Lt Popliteal Reflux Time 0.00 ms Rt SPJ Reflux Time Does not connect to ms Lt SPJ Reflux Time Does not connect to ms Rt Prox SSV Reflux Time 0.00 ms Lt Prox SSV Reflux Time 0.00 ms Rt Mid SSV Reflux Time 0.00 ms Lt Mid SSV Reflux Time 0.00 ms Right Leg Value Units Left Leg Value Units FINDINGS: Performing Cyber Security Engineer: Miles Romero RVT. Patient positioning: Reflux testing is performed in standing position. Bilateral: The common femoral, femoral, popliteal veins were evaluated with compression maneuvers. No evidence of deep vein thrombus by duplex, proximal to the calf. Noninvasive venous studies cannot rule out an isolated calf vein obstruction. Right: On the right venous reflux noted in great saphenous vein at the knee and great saphenous vein below the knee. Comments: There is no evidence of venous reflux in the left lower extremity. - CONCLUSIONS: On the right venous reflux noted in great saphenous vein at the knee and great saphenous vein below the knee. There is no evidence of venous reflux in the left lower extremity. There is no evidence of acute deep vein thrombosis in the lower extremities bilaterally. Noninvasive venous studies cannot rule out isolated calf vein obstruction. HISTORY: Not identified. PREVIOUS STUDIES: No previous studies for comparison. DISCLAIMER: The study images and the final report will be retained in the patient chart by the Vascular Laboratory for the legally required time period. This chart constitutes the legal record of any testing performed. ATTESTATION: I have reviewed and interpreted the pertinent images and measurements of this study. I attest to the conclusions in the final report that is provided above. Electronically Signed By: Rod Cormier MD [facility] 02/21/2025 12:10:04 PM CDT Procedure Note Rod Cormier MD - 02/21/2025 [facility] - Department of Vascular Surgery,Vascular Laboratory [address] [place] [id number] Lower Extremity Venous Reflux Duplex Report Patient Name: EZEKIEL GAUTHIER : 1945 (79y 9m) Study Date: 02/21/2025 10:14:29 AM Sex: M Tech: TT Location: [facility] Provider: ZENA HUFF Quality: Adequate Order Provider: ZENA HUFF PROCEDURES: Vascular Report: Lower extremity venous valvular insufficiency or reflux evaluation isperformed with rapid cuff inflator. Veins evaluated are sapheno-femoral junction, great saphenous, commonfemoral, femoral, profunda femoral, popliteal, sapheno-popliteal and small saphenous veinsbilaterally. Criteria for superficial vein reflux is retrograde blood flow greater than0.5 seconds. INDICATIONS: M79.89 Other specified soft tissue disorders. MEASUREMENTS: Right Leg Value Units Left Leg Value Units Rt Sapheno-Femoral Junction 0.74 cm Lt Sapheno-Femoral Junction 0.77 cm Rt Great Saphenous Thigh - Proximal 0.44 cm Lt Great Saphenous Thigh -Proximal 0.44 cm Rt Great Saphenous Thigh - Mid 0.40 cm Lt Great Saphenous Thigh - Mid 0.36cm Rt Great Saphenous Thigh - Distal 0.36 cm Lt Great Saphenous Thigh -Distal 0.43 cm Rt Great Saphenous Knee 0.28 cm Lt Great Saphenous Knee 0.33 cm Rt Great Saphenous Calf - Proximal 0.30 cm Lt Great Saphenous Calf -Proximal 0.26 cm Rt Great Saphenous Calf - Mid 0.18 cm Lt Great Saphenous Calf - Mid 0.23cm Rt Great Saphenous Calf - Distal 0.29 cm Lt Great Saphenous Calf - Distal0.25 cm Rt Sapheno-Popliteal Junction Does not connect to cm Lt Sapheno- PoplitealJunction Does not connect to cm Rt Small Saphenous Proximal 0.29 cm Lt Small Saphenous Proximal 0.33 cm Rt Small Saphenous Mid 0.23 cm Lt Small Saphenous Mid 0.38 cm Rt Small Saphenous Distal 0.23 cm Lt Small Saphenous Distal 0.34 cm Rt CFV Reflux Time 0.00 ms Lt CFV Reflux Time 0.00 ms Rt SFJ Reflux Time 0.00 ms Lt SFJ Reflux Time 0.00 ms Rt GSV Thigh Reflux Time 0.00 ms Lt GSV Thigh Reflux Time 0.00 ms Rt PFV Reflux Time 0.00 ms Lt PFV Reflux Time 0.00 ms Rt FV Mid Reflux Time 0.00 ms Lt FV Mid Reflux Time 0.00 ms Rt GSV Knee Reflux Time 5633.00 ms Lt GSV Knee Reflux Time 0.00 ms Rt GSV Below Knee Reflux Time 4533.00 ms Lt GSV Below Knee Reflux Time0.00 ms Rt Popliteal Reflux Time 0.00 ms Lt Popliteal Reflux Time 0.00 ms Rt SPJ Reflux Time Does not connect to ms Lt SPJ Reflux Time Does notconnect to ms Rt Prox SSV Reflux Time 0.00 ms Lt Prox SSV Reflux Time 0.00 ms Rt Mid SSV Reflux Time 0.00 ms Lt Mid SSV Reflux Time 0.00 ms Right Leg Value Units Left Leg Value Units FINDINGS: Performing Cyber Security Engineer: Miles Romero RVT. Patient positioning: Reflux testing is performed in standing position. Bilateral: The common femoral, femoral, popliteal veins were evaluated withcompression maneuvers. No evidence of deep vein thrombus by duplex, proximal to the calf.Noninvasive venous studies cannot rule out an isolated calf vein obstruction. Right: On the right venous reflux noted in great saphenous vein at the knee andgreat saphenous vein below the knee. Comments: There is no evidence of venous reflux in the left lower extremity. - CONCLUSIONS: On the right venous reflux noted in great saphenous vein at the knee andgreat saphenous vein below the knee. There is no evidence of venous reflux in the left lower extremity. There is no evidence of acute deep vein thrombosis in the lowerextremities bilaterally. Noninvasive venous studies cannot rule out isolated calf veinobstruction. HISTORY: Not identified. PREVIOUS STUDIES: No previous studies for comparison. DISCLAIMER: The study images and the final report will be retained in the patientchart by the Vascular Laboratory for the legally required time period. This chartconstitutes the legal record of any testing performed. ATTESTATION: I have reviewed and interpreted the pertinent images and measurements ofthis study. I attest to the conclusions in the final report that is provided above. Electronically Signed By: Rod Cormier MD [facility] 02/21/2025 12:10:04 PM CDT Zena Huff NP IMG US PROCEDURES Final Result * US Carotids Duplex Bilateral (02/19/2025 11:29 AM CDT) Anatomical Region Laterality Modality Vascular Bilateral Ultrasound 02/19/2025 10:2 5 AM CDT Narrative 02/20/2025 7:58 AM CDT [facility] - Department of Vascular Surgery, Vascular Laboratory [address] [place] [id number] Carotid Duplex Ultrasound Report Patient Name: EZEKIEL GAUTHIER D : 1945 (79y 9m) Study Date: 02/19/2025 10:25:25 AM Sex: M Tech: BAD [facility] Ref Provider: ZENA HUFF Quality: Adequate Order Provider: ZENA HUFF PROCEDURES: Carotid Report: Carotid duplex examination of the extracranial arteries was performed using 2D, color and spectral Doppler. INDICATIONS: Z48.812 Encounter for surgical aftercare following surgery on the circulatory system. MEASUREMENTS: Right Value Units Left Value Units RT Prox CCA PSV 70 cm/sec LT Prox CCA PSV 94 cm/sec RT Prox CCA EDV 13 cm/sec LT Prox CCA EDV 17 cm/sec RT Distal CCA PSV 79 cm/sec LT Distal CCA PSV 55 cm/sec RT Distal CCA EDV 17 cm/sec LT Distal CCA EDV 15 cm/sec RT Prox ICA PSV 53 cm/sec LT Prox ICA PSV 54 cm/sec RT Prox ICA EDV 10 cm/sec LT Prox ICA EDV 15 cm/sec RT Mid ICA PSV 68 cm/sec LT Mid ICA PSV 62 cm/sec RT Mid ICA EDV 21 cm/sec LT Mid ICA EDV 21 cm/sec RT Distal ICA PSV 89 cm/sec LT Distal ICA PSV 75 cm/sec RT Distal ICA EDV 29 cm/sec LT Distal ICA EDV 26 cm/sec RT ECA Prx PSV 94 cm/sec LT ECA Prx PSV 83 cm/sec RT ICA/CCA 1.13 ratio LT ICA/CCA 1.36 ratio RT VERT PSV 38 cm/sec LT VERT PSV 38 cm/sec FINDINGS: Performing Cyber Security Engineer: Anh Philip RVT. Rt Common Carotid Artery: The plaque in the right CCA appears to be heterogeneous and smooth. Atherosclerotic changes of the right common carotid artery with no hemodynamically significant Doppler findings. Rt Internal Carotid Artery: The plaque in the right internal carotid artery appears to be heterogeneous and smooth. Atherosclerotic changes of the right internal carotid artery without hemodynamically significant Doppler findings. <50% stenosis. Rt External Carotid Artery: Patent right external carotid artery with evidence of atherosclerotic disease present. Rt Vertebral Artery: The right vertebral artery is patent with antegrade flow. Lt Common Carotid Artery: The plaque in the left CCA appears to be heterogeneous and smooth. Atherosclerotic changes of the left common carotid artery with no hemodynamically significant Doppler findings. Lt Internal Carotid Artery: The plaque in the left internal carotid artery appears to be heterogeneous and smooth. Atherosclerotic changes of the left internal carotid artery without hemodynamically significant Doppler findings. <50% stenosis. Lt External Carotid Artery: Patent left external carotid artery with evidence of atherosclerotic disease present. Lt Vertebral Artery: The left vertebral artery is patent with antegrade flow. CONCLUSIONS: 1. The right internal carotid artery disease is consistent with a less than 50% stenosis. 2. The left internal carotid artery disease is consistent with a less than 50% stenosis. 3. No evidence of hemodynamically significant stenosis in the common carotid artery bilaterally. 4. Normal, antegrade flow is noted in bilateral vertebral arteries. HISTORY: Right carotid endarterectomy 2009. Left carotid endarterectomy 2010. - PREVIOUS STUDIES: Previous carotid ultrasound on 01/25/2024 Normal bilateral internal carotid arteries, no evidence of plaque. 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 antegrade flow is noted in the left vertebral artery. - DISCLAIMER: The study images and the final report will be retained in the patient chart by the Vascular Laboratory for the legally required time period. This chart constitutes the legal record of any testing performed. ATTESTATION: I have reviewed and interpreted the pertinent images and measurements of this study. I attest to the conclusions in the final report that is provided above. Electronically Signed By: Jose Daily MD [facility] [phone] 02/20/2025 8:34:31 AM EDT Procedure Note Jose Daily MD - 02/20/2025 [facility] - Department of Vascular Surgery,Vascular Laboratory [address] [place] [id number] Carotid Duplex Ultrasound Report Patient Name: EZEKIEL GAUTHIER D : 1945 (79y 9m) Study Date: 02/19/2025 10:25:25 AM Sex: M Tech: BANNER Location: [facility] Ref Provider: ZENA HUFF Quality: Adequate Order Provider: ZENA HUFF PROCEDURES: Carotid Report: Carotid duplex examination of the extracranial arterieswas performed using 2D, color and spectral Doppler. INDICATIONS: Z48.812 Encounter for surgical aftercare following surgery on thecirculatory system. MEASUREMENTS: Right Value Units Left Value Units RT Prox CCA PSV 70 cm/sec LT Prox CCA PSV 94 cm/sec RT Prox CCA EDV 13 cm/sec LT Prox CCA EDV 17 cm/sec RT Distal CCA PSV 79 cm/sec LT Distal CCA PSV 55 cm/sec RT Distal CCA EDV 17 cm/sec LT Distal CCA EDV 15 cm/sec RT Prox ICA PSV 53 cm/sec LT Prox ICA PSV 54 cm/sec RT Prox ICA EDV 10 cm/sec LT Prox ICA EDV 15 cm/sec RT Mid ICA PSV 68 cm/sec LT Mid ICA PSV 62 cm/sec RT Mid ICA EDV 21 cm/sec LT Mid ICA EDV 21 cm/sec RT Distal ICA PSV 89 cm/sec LT Distal ICA PSV 75 cm/sec RT Distal ICA EDV 29 cm/sec LT Distal ICA EDV 26 cm/sec RT ECA Prx PSV 94 cm/sec LT ECA Prx PSV 83 cm/sec RT ICA/CCA 1.13 ratio LT ICA/CCA 1.36 ratio RT VERT PSV 38 cm/sec LT VERT PSV 38 cm/sec FINDINGS: Performing Cyber Security Engineer: Anh Philip RVT. Rt Common Carotid Artery: The plaque in the right CCA appears to beheterogeneous and smooth. Atherosclerotic changes of the right common carotid artery with no hemodynamically significant Doppler findings. Rt Internal Carotid Artery: The plaque in the right internal carotidartery appears to be heterogeneous and smooth. Atherosclerotic changes of the right internalcarotid artery without hemodynamically significant Doppler findings. <50% stenosis. Rt External Carotid Artery: Patent right external carotid artery withevidence of atherosclerotic disease present. Rt Vertebral Artery: The right vertebral artery is patent with antegradeflow. Lt Common Carotid Artery: The plaque in the left CCA appears to beheterogeneous and smooth. Atherosclerotic changes of the left common carotid artery with nohemodynamically significant Doppler findings. Lt Internal Carotid Artery: The plaque in the left internal carotid arteryappears to be heterogeneous and smooth. Atherosclerotic changes of the left internalcarotid artery without hemodynamically significant Doppler findings. <50% stenosis. Lt External Carotid Artery: Patent left external carotid artery withevidence of atherosclerotic disease present. Lt Vertebral Artery: The left vertebral artery is patent with antegradeflow. CONCLUSIONS: 1. The right internal carotid artery disease is consistent with a lessthan 50% stenosis. 2. The left internal carotid artery disease is consistent with a less than50% stenosis. 3. No evidence of hemodynamically significant stenosis in the commoncarotid artery bilaterally. 4. Normal, antegrade flow is noted in bilateral vertebral arteries. HISTORY: Right carotid endarterectomy 2009. Left carotid endarterectomy 2010. - PREVIOUS STUDIES: Previous carotid ultrasound on 01/25/2024 Normal bilateral internal carotid arteries, no evidence of plaque. 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 antegrade flow is noted in the left vertebral artery. - DISCLAIMER: The study images and the final report will be retained in the patientchart by the Vascular Laboratory for the legally required time period. This chartconstitutes the legal record of any testing performed. ATTESTATION: I have reviewed and interpreted the pertinent images and measurements ofthis study. I attest to the conclusions in the final report that is provided above. Electronically Signed By: Jose Daily MD [facility] [phone] 02/20/2025 8:34:31 AM EDT Zena Huff ULISES IMG US PROCEDURES Final Result * CTA Abdomen Pelvis (02/19/2025 9:33 AM CDT) Anatomical Region Laterality Modality Body N/A Computed Tomogra phy 02/19/2025 11:5 8 AM CDT Impressions 02/19/2025 12:41 PM CDT IMPRESSION: 1. 47 mm x 41 mm infrarenal abdominal aortic aneurysm with stent graft in place. There has been no significant interval change in the size of the aneurysm since the prior examination when measured in a similar fashion. 2. AAA volume: 146 cc. This is stable since the prior exam. 3. No evidence of stent migration. No evidence of endoleak. Dictated by: Kristopher Frankel MD The radiology attending physician has personally reviewed this study, and had reviewed and/or edited this written report and agrees with it. Electronically signed by: Anastasia Leone M.D. Narrative 02/19/2025 12:41 PM CDT EXAMINATION: CT ANGIOGRAPHY OF THE ABDOMEN AND PELVIS WITH AND WITHOUT CONTRAST HISTORY: Abdominal aortic aneurysm status post endovascular repair TECHNIQUE: CT angiography of the abdomen and pelvis was performed prior to and following the intravenous administration of 125 ml [id number] using the post-endoluminal stent graft protocol. Vascular 3D images were generated on a dedicated workstation and also reviewed. COMPARISON: CT 01/25/2024 FINDINGS: VASCULAR FINDINGS: There is an infrarenal abdominal aortic aneurysm that extends into the bilateral common iliacs with an [id number] stent graft in place. The proximal attachment site is at the level of the mesenteric artery, and the distal attachment sites are in the common iliac arteries. Overlapping endovascular stents extend into the right external iliac and right internal iliac arteries.. There has been no migration of the graft since the last exam. There is no perigraft flow to suggest an endoleak. No visceral stents are present. There is mild atherosclerotic stenosis at the origin of the celiac, superior mesenteric, and bilateral renal arteries, unchanged. AAA volume (lowest renal artery to aortic bifurcation): 146 cc. This is stable since the prior exam, previously 139 cc. The maximum diameter of the aneurysm is 47 mm AP x 41 mm [id number]. This is stable since the prior exam when measured in a similar fashion, previously 45 x 41 mm. The maximum diameter of the graft is 38 mm AP x 34 mm [id number]. This is stable since the prior exam. NON-VASCULAR FINDINGS: Background of centrilobular emphysema is noted. Mild dependent atelectasis in the lower lobes. Imaged heart size normal. Coronary artery calcifications are noted. No pericardial effusion. Liver, gallbladder, pancreas, and adrenal glands are normal. No biliary ductal dilation. 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 Kidneys enhance symmetrically. Punctate non-obstructing stone in the right kidney. No suspicious renal lesion. No hydronephrosis. Urinary bladder is incompletely distended. There is moderate prostatomegaly with dystrophic calcifications. No bowel wall thickening or evidence of obstruction. No intraperitoneal free fluid or gas. There is a right-sided no abdominal pelvic lymphadenopathy. Small umbilical Portillo hernia without evidence of obstruction. Small bilateral fat-containing inguinal hernias. No suspicious osseous lesion. Procedure Note Anastasia Leone MD - 02/19/2025 EXAMINATION: CT ANGIOGRAPHY OF THE ABDOMEN AND PELVIS WITH AND WITHOUT CONTRAST HISTORY: Abdominal aortic aneurysm status post endovascular repair TECHNIQUE: CT angiography of the abdomen and pelvis was performed prior to and following the intravenous administration of 125 ml [id number] using the post-endoluminal stent graft protocol. Vascular 3D images were generated on a dedicated workstation and also reviewed. COMPARISON: CT 01/25/2024 FINDINGS: VASCULAR FINDINGS: There is an infrarenal abdominal aortic aneurysm that extends into the bilateral common iliacs with an [id number] stent graft in place. The proximal attachment site is at the level of the mesenteric artery, and the distal attachment sites are in the common iliac arteries. Overlapping endovascular stents extend into the right external iliac and right internal iliac arteries.. There has been no migration of the graft since the last exam. There is no perigraft flow to suggest an endoleak. No visceral stents are present. There is mild atherosclerotic stenosis at the origin of the celiac, superior mesenteric, and bilateral renal arteries, unchanged. AAA volume (lowest renal artery to aortic bifurcation): 146 cc. This is stable since the prior exam, previously 139 cc. The maximum diameter of the aneurysm is 47 mm AP x 41 mm [id number]. This is stable since the prior exam when measured in a similar fashion, previously 45 x 41 mm. The maximum diameter of the graft is 38 mm AP x 34 mm [id number]. This is stable since the prior exam. NON-VASCULAR FINDINGS: Background of centrilobular emphysema is noted. Mild dependent atelectasis in the lower lobes. Imaged heart size normal. Coronary artery calcifications are noted. No pericardial effusion. Liver, gallbladder, pancreas, and adrenal glands are normal. No biliary ductal dilation. 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 Kidneys enhance symmetrically. Punctate non-obstructing stone in the right kidney. No suspicious renal lesion. No hydronephrosis. Urinary bladder is incompletely distended. There is moderate prostatomegaly with dystrophic calcifications. No bowel wall thickening or evidence of obstruction. No intraperitoneal free fluid or gas. There is a right-sided no abdominal pelvic lymphadenopathy. Small umbilical Portillo hernia without evidence of obstruction. Small bilateral fat-containing inguinal hernias. No suspicious osseous lesion. IMPRESSION: IMPRESSION: 1. 47 mm x 41 mm infrarenal abdominal aortic aneurysm with stent graft in place. There has been no significant interval change in the size of the aneurysm since the prior examination when measured in a similar fashion. 2. AAA volume: 146 cc. This is stable since the prior exam. 3. No evidence of stent migration. No evidence of endoleak. Dictated by: Kristopher Frankel MD The radiology attending physician has personally reviewed this study, and had reviewed and/or edited this written report and agrees with it. Electronically signed by: Anastasia Leone M.D. Zena Huff NP IM CT PROCEDURES Final Result * (ABNORMAL) POC ISTAT (02/19/2025 9:33 AM CDT) Creatinine, POC, bld 1.4(H) 0.6 - 1.3 mg/dL POC Device Number [id number] [facility] Blood 02/19/2025 9:33 AM CDT 02/19/2025 9:33 AM CDT Zena Huff CENTRAL OFFICE FRAME WIRER LAB BLOOD ORDERABLES Final Res ult Performing Organization Address [facility] Co de Phone Number ANA [facility] [address] [facility] [place] [address] * PSA screen (02/12/2025 11:28 AM CDT) PSA-Total 5.90 <=6.20 ng/mL Comment: Interpretive Data AGE SEX REFERENCE INTERVAL 0 minutes-150 years Female None 0 minutes-49 years Male None 50-59 years Male 0-3.90 60-69 years Male 0-5.40 70-79 years Male 0-6.20 80-150 years Male 0-6.20 The Cortez PSA Total assay procedure was used. Results from different manufacturers or methods may not be comparable. Serial testing should be performed using the same method. Current interpretive data last revised 21. Testing performed by: [facility], [address] [place] [address]., [id number] Blood 02/12/2025 11:2 8 AM CDT 02/12/2025 5:22 PM CDT Mahesh Redding CENTRAL OFFICE FRAME WIRER LAB BLOOD ORDERABLES F inal Result Performing Organization Address [facility] Co de Phone Number ANA [facility] Department [place] [address] from Last 3 Months Insurance MEDICARE [facility] MEDICARE MEDICARE [facility] MEDICARE [facility] Advance Directives For more information, please contact: [phone] * Full Code (Latest Code Status on File) Date Activated Date Inactivated Comments 05/25/2024 4:12 PM 05/29/2024 5:35 PM * Full Code Date Activated Date Inactivated Comments 05/09/2024 10:00 AM 05/10/2024 4:55 AM * Full Code Date Activated Date Inactivated Comments 05/26/2018 5:17 PM 05/27/2018 3:32 PM Care Teams Orthophotography Technician Relationship Specialty Start Date End Date David Vegas MD [address] [facility] [address] [place] [address] PCP - General Internal Medicine 08/09/24 Deysi Hein NP [address] [place] [address] [place] [address] Nurse Practitioner Internal Medicine 08/07/24
--- OUTSIDE RECORDS SUMMARY | 2025-03-31 17:20 | XMS_ITS | Encounter Summary ---
Author Organization [facility] Address [address] [place] [address] Phone Care Team Providers Care Shaft Sinker Name Role Phone Deysi Hein NP Unavailable David Vegas MD Primary Care Provider [phone] Encounter Details Date Type Department Care Team (Late st Contact Info) Description 02/14/2025 Results Follow-Up [facility] Medicine Urology [address] [facility] [address] [place] [address] Mahesh Redding NP [address] [facility] [place] [address] PSA screen Social History Tobacco Use Types Packs/Day Years [...] on file 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
--- NOTE | 2025-03-31 17:26 | ED.FALL ---
HPI - Fall General Chief Complaint: Fall Stated Complaint: FALL HEAD INJURY Time Seen by Provider: 03/31/25 17:20 Source: patient and family Mode of arrival: ambulatory Limitations: no limitations History of Present Illness HPI Narrative: Patient is an 79-year-old male who is on Eliquis took a fall after losing his footing working his way off the ladder and fell from 3 steps high. He fell onto his back middle and back of the head. No syncope. There were no symptoms before the fall to include chest pain or shortness of breath or lightheaded or dizziness. There is no lacerations. Tetanus shot up-to-date. No nausea vomiting or diarrhea. Patient also having right hip pain. Patient has hypertension, hyperlipidemia, atrial fibrillation on Eliquis. MD complaint: fall Onset (ago): minute(s) (Thirty) Fall from: standing and from height (distance) (3 steps high on a ladder) Fall witnessed: yes, by family Place fall occurred: home Loss of consciousness: none Prolonged down time: no Symptoms prior to fall: none Context: tripped/slipped Location of injury: head and back (Midthoracic) Severity: mild Severity scale (1-10): 3 Quality: sharp Associated symptoms (after fall): other (Midthoracic back pain especially when he coughs) Related Data Home Medications ?Medication ?Instructions ?Recorded ?Confirmed ?Last Taken ?Type amlodipine 5 mg tablet 5 mg PO BID 03/31/25 Unknown History apixaban 5 mg tablet (Eliquis) 5 mg PO Q12H 03/31/25 Unknown History atorvastatin 10 mg tablet (Lipitor) 10 mg PO HS 03/31/25 Unknown History irbesartan 300 mg tablet 300 mg PO DAILY 03/31/25 Unknown History metoprolol tartrate 50 mg tablet 50 mg PO BID 03/31/25 Unknown History sotalol 120 mg tablet (Betapace) 120 mg PO Q12H 03/31/25 Unknown History Allergies Allergy/AdvReac Type Severity Reaction Status Date / Time diazepam Allergy Mild Unknown Verified 03/31/25 17:22 hydrochlorothiazide Allergy Mild Unknown Verified 03/31/25 17:22 Review of Systems Review of Systems: All systems reviewed & are unremarkable except as noted in HPI and below Constitutional: Constitutional: Reports no additional constitutional complaints Eyes: Eyes: Reports no additional eye complaints ENT: Reports system reviewed and no additional complaints, except as documented Cardiovascular: Cardiovascular: Reports no additional cardiovascular complaints Respiratory: Respiratory: Reports no additional respiratory complaints Gastrointestinal: Gastrointestinal: Reports no additional gastrointestinal complaints Genitourinary: Genitourinary: Reports no additional male genitourinary complaints Musculoskeletal: Musculoskeletal: Reports no additional musculoskeletal complaints Integumentary/Breasts: Skin/Breast: Reports system reviewed and no additional complaints, except as docu Neurologic: Reports system reviewed and no additional complaints, except as documented Psychiatric: Psychiatric: Reports no additional psychiatric complaints Endocrine: Endocrine: Reports no additional endocrine complaints Hematologic/Lymphatic: Hematologic/Lymphatic: Reports no additional hematologic/lymphatic complaints Allergic/Immunologic: Allergic/Immunologic: Reports no additional allergic/immunologic complaints Exam Const: General: healthy appearing Nutritional Appearance: well nourished Orientation/consciousness: patient oriented x3 HENMT: Head: normal to inspection Ears: external ears normal Face/Nose/Sinus: Normal external nose present Eyes: Conjunctivae: conjunctivae normal Pupils: Equal, round and reactive pupils present EOM: EOMs intact bilaterally Neck: Neck: normal visual inspection Chest: Chest palpation & inspection: normal inspection of the chest Resp: Effort & Inspection: normal respiratory effort and not labored Auscultation: clear to auscultation bilaterally and no crackles Cardio: Rate: regular rate Rhythm: regular rhythm Heart sounds: no murmurs GI: Inspection: non-distended Auscultation: normal bowel sounds : General: Yes bladder normal to palpation Back/Spine/Pelvis: Back: no CVA tenderness Skin: General skin exam: normal color Rashes: no rashes Wounds: no wounds Neuro: General: patient oriented x3, moves all extremities and no meningeal signs Other: Fast exam is negative, NIH is 0, GCS is 15 Extrem: General: normal to inspection, no clubbing, cyanosis or edema and no pedal edema Psych: Mental Status: mental status grossly normal Affect: normal affect Attitude: cooperative Course Vital Signs Vital signs: Vital Signs Temperature 36.4 C 03/31/25 17:20 Pulse Rate 65 03/31/25 17:20 Respiratory Rate 12 03/31/25 17:20 Blood Pressure 162/88 H 03/31/25 17:20 Pulse Oximetry 96 03/31/25 17:20 Oxygen Delivery Room Air 03/31/25 17:20 Temperature 36.4 C 03/31/25 17:20 Pulse Rate 77 03/31/25 18:16 Respiratory Rate 20 03/31/25 18:16 Blood Pressure 171/51 H 03/31/25 18:16 Pulse Oximetry 98 03/31/25 18:16 Oxygen Delivery Room Air 03/31/25 18:16 MDM - Fall MDM Narrative Medical decision making narrative: Patient is an 79-year-old male with a fall from a ladder 3 ft high after slipping working his way down off the ladder on Eliquis. CT scan of the head. We will also check the cervical spine and thoracic spine. Right hip pain and x-ray. CT scan of the head shows subdural hemorrhage. Patient will be transferred ER to ER at [facility] for higher level medical care. Lab Data Attestation: I reviewed the patient's lab results. Lab results narrative: Pending Imaging Data Attestation: I personally reviewed and interpreted this imaging study as follows: Radiologist's impression: CT scan of the head shows small subdural hemorrhage CT scan of the cervical spine is negative for acute process Chest x-rays negative for acute process Hip x-ray on the right is negative for acute process X-ray thoracic spine is negative for acute process ECG Data EKG #1: Attestation: I personally reviewed and interpreted this ECG as follows: ECG completion date: 03/31/25 ECG completion time: 18:37 EKG Interpretation: normal rate, sinus rhythm, no ectopy, non-specific ST changes, normal QRS, normal QT and NL axis Critical Care Time Critical Care Time Critical Care Time: Yes Total Critical Care Time: 40 Discharge Plan Discharge Clinical Impression: Subdural hemorrhage following injury, Fall Patient Disposition: Acute Care Hospital Condition: Stable Patient Language: Greek Prescriptions: No Action Eliquis 5 mg tablet 5 mg PO Q12H amlodipine 5 mg tablet 5 mg PO BID irbesartan 300 mg tablet 300 mg PO DAILY sotalol [Betapace] 120 mg tablet 120 mg PO Q12H atorvastatin [Lipitor] 10 mg tablet 10 mg PO HS metoprolol tartrate 50 mg tablet 50 mg PO BID Follow-up/Referrals: UNKNOWN,DOCTOR [Non-Staff] Time of Disposition: 18:34
--- OUTSIDE RECORDS SUMMARY | 2025-03-31 18:07 | XMS_ITS | Encounter Summary ---
Author Organization [facility] Address [address] [place] [address] Phone Care Team Providers Care Cheesemaking Laborer Name Role Phone uLcille Crawford MD Primary Care Provider Lucille Crawford MD Primary Care Provider David Vegas MD Primary Care Provider [phone] Deysi Hein NP Unavailable David Vegas MD Primary Care Provider [phone] Encounter Details Date Type Department Care Team (Late st Contact Info) Description 07/20/2019 Telephone [facility] Medicine Scheduling [facility] [place] [address] Lenny Vogel Social History Tobacco [...] on file 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 Gender Identity Not on file Sexual Orientation Not on file documented as of this encounter Plan of Treatment Not on file documented as of this encounter Visit Diagnoses Not on filedocumented in this encounter Additional Health Concerns Infection Onset Date Last Indicated Resolved Time COVID: Suspected 04/18/2022 04/18/2022 04/18/2022 5:08 PM RIPPER OPERATOR COVID: Suspected 04/18/2022 04/18/2022 04/19/2022 2:03 AM RIPPER OPERATOR COVID: Suspected 01/20/2023 01/20/2023 01/20/2023 11:35 AM CDT COVID19 01/20/2023 01/20/2023 01/30/2023 3:05 AM CDT COVID: Recovered Comment:Added based on recent COVID infection. 01/30/2023 01/31/2023 04/30/2023 3:[address] COVID: Suspected 05/17/2023 05/17/2023 05/17/2023 1:17 PM RIPPER OPERATOR documented as of this encounter Care Teams Cheesemaking Laborer Relationship Specialty Start Date End Date Lucille Crawford MD PCP - General Internal Medicine 05/08/19 07/17/23 Lucille Crawford MD PCP - General Internal Medicine 07/18/23 08/06/24 David Vegas MD [address] [place] [address] PCP - General Internal Medicine 08/07/24 08/08/24 David Vegas MD [address] [place] [address] [place] [address] PCP - General Internal Medicine 08/09/24 Deysi Hein NP [address] [place] [address] Nurse Practitioner Internal Medicine 08/07/24 documented as of this encounter
--- OUTSIDE RECORDS SUMMARY | 2025-03-31 18:07 | XMS_ITS | Encounter Summary ---
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 Gender Identity Not on file Sexual Orientation Not on file documented as of this encounter Functional Status * Question Answer Date of Assessment Author MAP (mmHg) 87 05/09/2024 10:55 AM FORGING PRESS OPERATOR Aurelia Bob, SYLVESTER * Alvarado Fall Risk Question Answer Date of Assessment Author History of Falling 0 05/09/2024 7:[address] Will RN Secondary Diagnosis 15 05/09/2024 7:[address] Horta RN Ambulatory Aids 0 05/09/2024 7:[address] Max RN Intravenous Therapy/Heparin/Saline Lock 20 [...] RN Reason For Exception(s) not utilized in [facility] 05/09/2024 7:[address] Will RN Reason For Exception(s) not utilized in [facility] 05/09/2024 7:[address] Will RN * [...] RN Reason For Exception(s) not utilized in [facility] 05/09/2024 7:[address] Will RN Reason For Exception(s) not utilized in [facility] 05/09/2024 7:[address] Will RN * [...] on filedocumented in this encounter Care Teams Shake Splitter Relationship Specialty Start Date End Date Lucille Crawford MD PCP - General Internal Medicine 07/18/23 08/06/24 David Vegas MD [address] [place] [address] PCP - General Internal Medicine 08/07/24 08/08/24 David Vegas MD [address] [place] [address] PCP - General Internal Medicine 08/09/24 Deysi Hein NP [address] [facility] [address] [place] [address] Nurse Practitioner Internal Medicine 08/07/24 documented as of this encounter
--- OUTSIDE RECORDS SUMMARY | 2025-03-31 18:07 | XMS_ITS | Encounter Summary ---
Author Organization [facility] Address [address] [place] [address] Phone Care Team Providers Care Chef De Cuisine Name Role Phone Mariya Gunderson MD Primary Care Provider [phone] Miles Rodriguez MD Primary Care Provider [phone] Lucille Crawford MD Primary Care Provider Lcuille Crawford MD Primary Care Provider David Vegas MD Primary Care Provider [phone] Deysi Hein NP Unavailable David Vegas MD Primary Care Provider [phone] Encounter Details Date Type Department Care Team (Latest Contact Info) Description 04/24/2017 Orders Only [facility] CONVERSION Scanning, Provider Social History Tobacco Use Types Packs/Day Years Used Date Smoking Tobacco: Former Sex and Gender Information Value Date Recorded Sex Assigned at Not on file 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 Gender Identity Not on file Sexual Orientation Not on file documented as of this encounter Plan of Treatment Not on file documented as of this encounter Procedures Procedure Name Priority Date/Time Associated Diagnosis Comments VASCULAR LABORATORY REPORT 04/24/2017 1:53 PM COMPUTER FORENSIC SPECIALIST documented in this encounter Results * VASCULAR LABORATORY REPORT (04/24/2017 1:53 PM COMPUTER FORENSIC SPECIALIST) Anatomical Region Laterality Modality Ultrasound us Provider Scanning CV VASCULAR PROCEDURES Final R esult documented in this encounter Visit Diagnoses Not on filedocumented in this encounter Additional Health Concerns Infection Onset Date Last Indicated Resolved Time COVID: Suspected 04/18/2022 04/18/2022 04/18/2022 5:08 PM COMPUTER FORENSIC SPECIALIST COVID: Suspected 04/18/2022 04/18/2022 04/19/2022 2:03 AM COMPUTER FORENSIC SPECIALIST COVID: Suspected 01/20/2023 01/20/2023 01/20/2023 11:35 AM CDT COVID19 01/20/2023 01/20/2023 01/30/2023 3:05 AM CDT COVID: Recovered Comment:Added based on recent COVID infection. 01/30/2023 01/31/2023 04/30/2023 3:[address] COVID: Suspected 05/17/2023 05/17/2023 05/17/2023 1:17 PM COMPUTER FORENSIC SPECIALIST documented as of this encounter Care Teams Chef De Cuisine Relationship Specialty Start Date End Date Mariya Gunderson MD [address] [facility] [address] [place] [address] PCP - General 04/21/17 04/27/17 [place] [address] [facility] [address] [place] [address] PCP - General 04/28/17 05/07/19 [place] [address] [facility] [address] [place] [address] PCP - General Internal Medicine 05/08/19 07/17/23 [place] [address] [facility] [address] [place] [address] PCP - General Internal Medicine 07/18/23 08/06/24 David Vegas MD [address] [place] [address] PCP - General Internal Medicine 08/07/24 08/08/24 David Vegas MD [address] [facility] [address] [place] [address] PCP - General Internal Medicine 08/09/24 Deysi Hein NP [address] [facility] [address] [place] [address] Nurse Practitioner Internal Medicine 08/07/24 documented as of this encounter
--- OUTSIDE RECORDS SUMMARY | 2025-03-31 18:07 | XMS_ITS | Clinical Summary ---
Author Organization [facility] Main [facility] s Address [address] [place] [address] Care Team Providers Care Registered Dietitian Name Role Phone Deysi Hein NP Unavailable David Vegas MD Primary Care Provider [phone] Allergies Active Allergy Reactions Criticality Noted Date [...] 06/05/2024 Assessment & Plan (06/05/2024 11:42 AM BUSINESS EDUCATION INSTRUCTOR): Acute onset of pain and instability after [...] 05/27/2024 Assessment & Plan (05/29/2024 8:01 AM BUSINESS EDUCATION INSTRUCTOR): Liver function tests improve. Continue current dose of atorvastatin. Likely related to atrial fibrillation rapid ventricular response. Follow-up as an outpatient. Assessment & Plan (05/28/2024 11:52 AM BUSINESS EDUCATION INSTRUCTOR): Liver function tests improve. Continue current dose of atorvastatin. Likely related to atrial fibrillation rapid ventricular response. Follow-up as an outpatient. Assessment & Plan (05/27/2024 9:28 AM BUSINESS EDUCATION INSTRUCTOR): Possibly related to afib and RVR, hepatic congestion, medication (atoravstatin) or other. Atorvastatin decreased to 10 mg Repeat cmp ordered for today Elevated liver function tests 05/26/2024 Assessment & Plan (05/26/2024 8:56 AM BUSINESS EDUCATION INSTRUCTOR): The patient with elevated transaminase levels. Asymptomatic [...] 04/23/2024 Assessment & Plan (05/29/2024 8:01 AM BUSINESS EDUCATION INSTRUCTOR): Successful cardioversion this morning. Plan to continue [...] cardioversion. Assessment & Plan (05/28/2024 11:51 AM BUSINESS EDUCATION INSTRUCTOR): The patient with AFib and rapid ventricular [...] staff. Assessment & Plan (05/27/2024 9:26 AM BUSINESS EDUCATION INSTRUCTOR): The patient with AFib and rapid ventricular response. Rate control overall improved. Tolerating sotalol 120 mg bid. Continue this dose today and follow telemetry and EKG for rate, rhythm, and Qtc. I d/w housestaff. Repeat comprehensive metabolic profile.--I have ordered for today Please schedule cardioversion for 05/29. Assessment & Plan (05/26/2024 8:54 AM BUSINESS EDUCATION INSTRUCTOR): The patient with AFib and rapid ventricular [...] provided. Assessment & Plan (06/05/2024 11:08 AM BUSINESS EDUCATION INSTRUCTOR): BMI Follow-up includes: nutrition counseling, exercise counseling, and education provided. Assessment & Plan (04/23/2024 8:35 AM BUSINESS EDUCATION INSTRUCTOR): BMI Follow-up includes: nutrition counseling, exercise counseling, and education provided. Assessment & Plan (04/20/2023 12:13 PM BUSINESS EDUCATION INSTRUCTOR): BMI Follow-up includes: nutrition counseling, exercise counseling, and education provided. Assessment & Plan (04/13/2021 1:18 PM BUSINESS EDUCATION INSTRUCTOR): BMI Follow-up includes: nutrition counseling, exercise counseling and education provided. Assessment & Plan (02/04/2020 3:48 PM CDT): BMI Follow-up includes: nutrition counseling, exercise counseling and education provided. Assessment & Plan (06/14/2019 11:53 AM BUSINESS EDUCATION INSTRUCTOR): BMI Follow-up includes: nutrition counseling, exercise counseling and education provided. Assessment & Plan (05/08/2019 10:26 AM BUSINESS EDUCATION INSTRUCTOR): BMI Follow-up includes: nutrition counseling, exercise counseling and education provided. Assessment & Plan (04/09/2019 12:44 PM BUSINESS EDUCATION INSTRUCTOR): BMI Follow-up includes: nutrition counseling, exercise counseling and education provided. History of abdominal aortic aneurysm (AAA) 04/09 Assessment & Plan (04/20/2023 3:10 PM BUSINESS EDUCATION INSTRUCTOR): Status post endovascular repair and iliac aneurysm repair. Continue atorvastatin and aspirin. Assessment & Plan (04/09/2019 1:09 PM BUSINESS EDUCATION INSTRUCTOR): S/p endovascular repair and more recently right iliac aneurysm repair Continue follow-up with vascular surgery Continue statin Chronic idiopathic constipation 04/09/2019 Assessment & Plan (04/13/2021 2:32 PM BUSINESS EDUCATION INSTRUCTOR): Continue miralax and dulcolax prn Assessment & Plan (04/09/2019 1:14 PM BUSINESS EDUCATION INSTRUCTOR): Continue Dulcolax MiraLax p.r.n. 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 Continue aspirin and statin for secondary prevention. Assessment & Plan (04/20/2023 3:10 PM BUSINESS EDUCATION INSTRUCTOR): Had repair of the iliac artery. Continue aspirin and statin for secondary prevention. Assessment & Plan (04/13/2021 12:26 PM BUSINESS EDUCATION INSTRUCTOR): S/p repair Obstructive sleep apnea syndrome in adult 2016 Assessment & Plan (05/29/2024 8:00 AM BUSINESS EDUCATION INSTRUCTOR): Continue treatment of sleep apnea. Assessment & Plan (05/28/2024 11:51 AM BUSINESS EDUCATION INSTRUCTOR): Continue treatment of sleep apnea. Assessment & Plan (04/13/2021 2:33 PM BUSINESS EDUCATION INSTRUCTOR): Continue follow up with sleep med Assessment & Plan (02/04/2020 6:00 PM CDT): Follow up with sleep med Continue CPAP Assessment & Plan (04/09/2019 1:11 PM BUSINESS EDUCATION INSTRUCTOR): Continue CPAP use in follow-up with sleep medicine Emphysema of lung 07/11/2014 Assessment & Plan (04/23/2024 2:21 PM BUSINESS EDUCATION INSTRUCTOR): Currently is not using any inhalers. Stable at this time. Assessment & Plan (04/20/2023 3:09 PM BUSINESS EDUCATION INSTRUCTOR): Currently is not using any inhalers. Stable [...] 01/23/2014 Assessment & Plan (04/20/2023 3:08 PM BUSINESS EDUCATION INSTRUCTOR): Patient uses adalafil 20 mg as needed. [...] endarterectomy Assessment & Plan (04/23/2024 2:21 PM BUSINESS EDUCATION INSTRUCTOR): Patient is status post bilateral carotid endarterectomy. No bruits noted. On aspirin daily and atorvastatin 40 mg. Assessment & Plan (04/20/2023 3:08 PM BUSINESS EDUCATION INSTRUCTOR): Patient is status post bilateral carotid endarterectomy. No bruits noted. On aspirin daily and atorvastatin 40 mg. Essential hypertension, benign 12/12/2013 Assessment & Plan (06/05/2024 11:44 AM BUSINESS EDUCATION INSTRUCTOR): Stable on current regimen of Irbesartan and Amlodipine. -Continue current medications. Assessment & Plan (05/29/2024 8:01 AM BUSINESS EDUCATION INSTRUCTOR): Blood pressure stable continue current therapy Assessment & Plan (05/28/2024 11:51 AM BUSINESS EDUCATION INSTRUCTOR): Blood pressure stable continue current therapy Assessment & Plan (05/27/2024 9:26 AM BUSINESS EDUCATION INSTRUCTOR): Blood pressure stable continue current therapy Assessment & Plan (05/26/2024 8:55 AM BUSINESS EDUCATION INSTRUCTOR): Blood pressure stable continue current therapy Assessment & Plan (04/23/2024 2:21 PM BUSINESS EDUCATION INSTRUCTOR): BP 130/84 (BP Location: Right arm, Patient Position: Sitting) Pulse 118 Temp 36.5 C (97.7 F) Resp 22 Ht 185.4 cm (6' 0.99) Wt 75.8 kg (167 lb) SpO2 95% BMI 22.04 kg/m Amlodipine 5 mg, Avapro 300 mg carvedilol6.25 mg b.i.d.. Assessment & Plan (04/20/2023 3:09 PM BUSINESS EDUCATION INSTRUCTOR): BP 130/80 (BP Location: Right arm, Patient Position: Sitting) Pulse 67 Resp 16 Ht 185.4 cm (6' 1) Wt 101.2 kg (223 lb) SpO2 98% BMI 29.42 kg/m Amlodipine 5 mg, Avapro 300 mg carvedilol6.25 mg b.i.d.. Mixed hyperlipidemia 07/30/2013 Assessment & Plan (06/05/2024 11:44 AM BUSINESS EDUCATION INSTRUCTOR): Dose reduced by hospitalist to 10mg every day. Will continue to follow labs. Follow with cardiology. -Continue Atorvastatin 10mg. Assessment & Plan (04/23/2024 2:22 PM BUSINESS EDUCATION INSTRUCTOR): Atorvastatin 40 mg daily. Eat healthy and exercise. Assessment & Plan (04/20/2023 3:13 PM BUSINESS EDUCATION INSTRUCTOR): Atorvastatin 40 mg daily. Eat healthy and exercise. Assessment & Plan (04/13/2021 2:32 PM BUSINESS EDUCATION INSTRUCTOR): Lipid panel today Continue atorvastatin 40 Assessment & Plan (02/04/2020 6:00 PM CDT): Continue atorvastatin Assessment & Plan (04/09/2019 1:10 PM BUSINESS EDUCATION INSTRUCTOR): Lipid panel 10/2018 with LDL 80 Continue atorvastatin Obstructive sleep apnea 07/30/2013 Overview (06/15/2023): DIAGNOSIS: Obstructive sleep apnea PROCEDURE PERFORMED: (Robert 06/03/23) Right hypoglossal nerve stimulator implantation Generator placement right chest wall Lead placement right intercostal muscle Assessment & Plan (05/26/2024 8:54 AM BUSINESS EDUCATION INSTRUCTOR): Continue therapy. Assessment & Plan (04/23/2024 2:22 PM BUSINESS EDUCATION INSTRUCTOR): Patient uses CPAP. Assessment & Plan (04/20/2023 3:13 PM BUSINESS EDUCATION INSTRUCTOR): Patient uses CPAP. Varicose veins of both legs with edema 0 Assessment & Plan (04/23/2024 2:22 PM BUSINESS EDUCATION INSTRUCTOR): Elevate legs when sitting. Encounter for preventive health examination 12/21 Assessment & Plan (04/23/2024 2:21 PM BUSINESS EDUCATION INSTRUCTOR): Patient has been educated regarding preventative screening, [...] warranted. Assessment & Plan (04/20/2023 3:09 PM BUSINESS EDUCATION INSTRUCTOR): Patient has been educated regarding preventative screening, [...] 08/22/2024 Assessment & Plan (06/05/2024 11:43 AM BUSINESS EDUCATION INSTRUCTOR): -Follow up with cardiology. -Continue current medications. -EKG today as scheduled with hospital. Dizziness and giddiness 05/24/202305/23 Bilateral hand pain 04/13/2021 06/05/19 25 Assessment & Plan (04/13/2021 2:35 PM BUSINESS EDUCATION INSTRUCTOR): Likely OA Continue tylenol prn Recommend voltaren gel xrays today Consider ortho referral if needed Lower abdominal pain 02/04/2020 025 Assessment & Plan (02/04/2020 6:01 PM CDT): Likely due to constipation Recommended increased fluid intake, Dulcolax daily and miralax prn Itching 06/14/2019 06/05/2024 Assessment & Plan (06/14/2019 9:57 PM BUSINESS EDUCATION INSTRUCTOR): Possibly xerosis, allergy. Less likely thyroid dysfunction. Given perioral paresthesias will check calcium/magnesium. Recommended unscented/alcohol free soap and lotion. Pat dry after shower and apply moisturizer. Rash 05/08/2019 02/04/2020 Assessment & Plan (05/08/2019 10:48 AM BUSINESS EDUCATION INSTRUCTOR): Likely eczema/atopic dermatitis No improvement with hydrocort or keflex Avoid scented or alcohol containing skin products. 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 Other chest pain 11/06/2018 04/20/2023 Assessment & [...] left hand 01/23/2015 06/05/2024 Coronary atherosclerosis of [place] coronary vessel 07/11/2014 06/05/2024 Abnormal finding in [...] 04/23/2024 Assessment & Plan (04/13/2021 2:32 PM BUSINESS EDUCATION INSTRUCTOR): BP well controlled Continue amlodipine 5, coreg 6.25 bid, irbesartan 300 Assessment & Plan (02/04/2020 4:32 PM CDT): Increase Coreg to 12.5 BID Continue amlodipine 5, irbesartan 300 Assessment & Plan (04/09/2019 1:10 PM BUSINESS EDUCATION INSTRUCTOR): BP slightly above goal Encouraged patient to follow low-salt diet Continue irbesartan, Coreg, and amlodipine Counseled patient on proper way to check blood pressure readings at home Abdominal aortic aneurysm 01/12/2010 Overview (04/18/2022): Sees cintia Ernandez yearly Encounters Date Type Department Care Team Description 03/25/2025 [facility] [address] [facility] [address] [place] [address] [place] [address] En Cartwright MD Patient assistance Brandon 03/12/2025 10:15 AM CDT Office Visit [facility] Medicine Surgery [address] 8th [place] [address] [place] [address] Jose Daily MD Itching of lesion of skin (Primary Dx) 03/03/2025 2:15 PM CDT Office Visit [facility] [place] [address] [place] [phone] Uzma Warren NP Puncture wound of right middle finger without foreign body with damage to nail, initial encounter (Primary Dx); Subungual hematoma of finger of right hand, initial encounter 02/26/2025 10:40 AM CDT Office Visit [facility] [address] 11th [place] [address] [place] [address] Mahesh Redding NP Vasculogenic erectile dysfunction, unspecified vasculogenic erectile dysfunction type (Primary Dx) 02/22/2025 [facility]phone [facility] [address] [facility] [address] [place] [address] Zena Huff NP 02/21/2025 10:15 AM CDT Ancillary Procedure [facility] at the [facility] [address] 8th [place] [address] [place] [phone] Swelling of both lower extremities 02/19/2025 11:45 AM CDT [facility] [address] [facility] [address] [place] [address] Zena Huff NP Swelling of both lower extremities (Primary Dx) 02/19/2025 11:00 AM CDT Ancillary Procedure [facility] Vascular Lab Vascular Surgery [address] [place] [address] [address] [place] [address] Encounter for surgical aftercare following surgery on the circulatory system 02/19/2025 9:25 AM CDT - 02/19/2025 11:59 PM CDT Hospital Encounter [facility] Imaging [address] [place] [address] Encounter for surgical aftercare following surgery on the circulatory system Discharge Disposition: Discharge to home or self care 02/18/2025 1:40 PM CDT Office Visit [facility] Urology [address] [facility] [address] [place] [phone] Mahesh Redding NP Elevated PSA (Primary Dx); Erectile dysfunction, unspecified erectile dysfunction type 02/14/2025 Results Follow-Up [facility] Urology [address] [facility] Office [facility] [address] [place] [phone] Mahesh Redding NP PSA screen 02/12/2025 11:30 AM CDT Lab [facility] [address] [place] [address] Elevated PSA 02/11/2025 Orders Only [facility] [address] [place] [address] 11th [place] [address] [place] [phone] Mahesh Redding NP Elevated PSA (Primary Dx) 02/11/2025 Telephone [facility] ([facility] [address] [place] [address] 11th [place] [phone] Danna Pringle 02/11/2025 Telephone [facility] ([facility] [address] [place] [address] [address]th [place] [phone] Justice Pickens from Last 3 Months Immunizations [...] Status Comments Brother 1 (Age 58) fatal [place] Brother 2 Father (Age 72) fatal [place] Mother Social History Tobacco Use Types Packs/Day [...] on file Legal Sex Male 7:49 PM BUSINESS EDUCATION INSTRUCTOR Gender Identity Not on file Sexual Orientation [...] history exists Medical Devices Implanted Type Area Gray Mixing Operator Device Identifier Shelf Expiration Date Model / Serial / Lot Wl [employer] [id number] Excluder 18mm 14.5-16.5mm 9.5cm Stent Abrasion Resistant - [id number] - [id number] Implanted:Qty: 1 on 05/26/2018 by Rod Cormier MD at [facility] Graft Right: Abdomen Wl [employer] [id number] 02/24/2021 [id number] / [id number] / Description:Right Common Cheryl ac Wl [employer] [id number] Colerain Excluder 10mm 10cm Branch Component Iliac Graft Endovascular - [id number] - [id number] Implanted:Qty: 1 on 05/26/2018 by Rod Cormier MD at [facility] Graft Right: Abdomen Wl [employer] 12/05/2020 [id number] / [id number] / Description:Right Common Cheryl ac Artery [employer]ire [employer] Lead Neurostimulator Sleep Apnea Thoracic Permanent Respiratory Sensing Inspire 43cm 4340 - [id number] Implanted:Qty: 1 on 06/03/2023 by Babak Jones MD at [facility] Other - see comments Right: Chest [employer] 03/21/2026 4340 / [id number] / Description:Implant pause pe rformed Implant times approximate [employer] Inspire 3 Electrode Cuff Tunnel Kahlil Lead Neurostimulator Sterile 4063 - [id number] Implanted:Qty: 1 on 06/03/2023 by Babak Jones MD at [facility] Other - see comments Right: Neck [employer] 12/13/2025 4063 / [id number] / Description:Implant pause pe rformed Implant times approximate [employer] Inspire Generator 3028 - [id number] Implanted:Qty: 1 on 06/03/2023 by Babak Jones MD at [facility] Other - see comments Right: Chest [employer] 03/14/2026 3028 / [id number] / Description:Implant pause pe rformed Implant times approximate Wl [employer] [id number] Colerain Viabahn 10mm 13mm 8fr 29mm 135cm Balloon Expandable - [id number] - [id number] Implanted:Qty: 1 on 05/26/2018 by Rod Cormier MD at [facility] Stent Right: Abdomen Wl [employer] [id number] 01/31/2021 [id number] 02A / [id number] / Description:Right Internal I liac Artery [employer] Balloon Expandable Implanted:Qty: 1 on 05/26/2018 by Rod Cormier MD at [facility] Stent Right: Abdomen Wl [employer] [id number] 03/22/2020 / [id number] / Description:Right External I liac Artery [employer] [id number] Express Ld [employer]andem [employer] 10mm 37mm 75cm Otw Radiopaque - [id number] - [id number] Implanted:Qty: 1 on 05/26/2018 by Rod Cormier MD at [facility] Stent Right: Abdomen [employer] [id number] 01/04/2021 99592-2 0407 / [id number] / [id number] Description:Right External I liac Artery Pins [...] AM CDT Narrative 02/21/2025 12:10 PM CDT [facility] - Department of Vascular Surgery, Vascular Laboratory [address] [place] [address] Lower Extremity Venous Reflux Duplex Report Patient Name: EZEKIEL GAUTHIER : 1945 (79y 9m) Study Date: 02/21/2025 10:14:29 AM Sex: M Tech: TT Location: [facility] Ref Provider: ZENA HUFF Quality: Adequate [...] Units Left Leg Value Units FINDINGS: Performing Senior Software Manager: Miles Romero RVT. Patient positioning: Reflux testing [...] above. Electronically Signed By: Rod Cormier MD [facility] 02/21/2025 12:10:04 PM CDT Procedure Note Rod Cormier MD - 02/21/2025 [facility] - Department of Vascular Surgery,Vascular Laboratory [address] [place] [address] Lower Extremity Venous Reflux Duplex Report Patient Name: EZEKIEL GAUTHIER : 1945 (79y 9m) Study Date: 02/21/2025 10:14:29 AM Sex: M Tech: TT Location: [facility] Provider: ZENA HUFF Quality: Adequate Order Provider: [...] Units Left Leg Value Units FINDINGS: Performing Senior Software Manager: Miles Romero RVT. Patient positioning: Reflux testing [...] above. Electronically Signed By: Rod Cormier MD [facility] 02/21/2025 12:10:04 PM CDT Zena Huff NP IMG US PROCEDURES Final Result * US Carotids Duplex Bilateral (02/19/2025 11:29 AM CDT) Anatomical Region Laterality Modality Vascular Bilateral Ultrasound 02/19/2025 10:2 5 AM CDT Narrative 02/20/2025 7:58 AM CDT [facility] - Department of Vascular Surgery, Vascular Laboratory [address] [place] [address] Carotid Duplex Ultrasound Report Patient Name: EZEKIEL GAUTHIER D : 1945 (79y 9m) Study Date: 02/19/2025 10:25:25 AM Sex: M Tech: BAD [facility] Ref Provider: ZENA HUFF Quality: Adequate Order [...] LT VERT PSV 38 cm/sec FINDINGS: Performing Senior Software Manager: Anh Philip RVT. Rt Common Carotid Artery: [...] above. Electronically Signed By: Jose Daily MD [facility] [phone] 02/20/2025 8:34:31 AM EDT Procedure Note Jose Daily MD - 02/20/2025 [facility] - Department of Vascular Surgery,Vascular Laboratory [address] [place] [address] Carotid Duplex Ultrasound Report Patient Name: EZEKIEL GAUTHIER D : 1945 (79y 9m) Study Date: 02/19/2025 10:25:25 AM Sex: M Tech: [facility] Location: [facility] Ref Provider: ZENA HUFF Quality: Adequate [...] LT VERT PSV 38 cm/sec FINDINGS: Performing Senior Software Manager: Anh Philip RVT. Rt Common Carotid Artery: [...] above. Electronically Signed By: Jose Daily MD [facility] [phone] 02/20/2025 8:34:31 AM EDT Zena Huff ULISES [...] into the bilateral common iliacs with an [id number]-[id number] stent graft in place. The proximal attachment [...] is 47 mm AP x 41 mm jjwxq-ds-dknk. This is stable since the prior exam when measured in a similar fashion, previously 45 x 41 mm. The maximum diameter of the graft is 38 mm AP x 34 mm sjqae-zl-cobh. This is stable since the prior exam. [...] into the bilateral common iliacs with an tyaca-kx-exgle stent graft in place. The proximal attachment [...] is 47 mm AP x 41 mm bcvaz-un-rzaw. This is stable since the prior exam when measured in a similar fashion, previously 45 x 41 mm. The maximum diameter of the graft is 38 mm AP x 34 mm ckfqc-xl-dizj. This is stable since the prior exam. [...] 0.6 - 1.3 mg/dL POC Device Number [id number] [facility] Blood 02/19/2025 9:33 AM CDT 02/19/2025 9:33 AM CDT Zena Huff CHEESE FACTORY WORKER LAB BLOOD ORDERABLES Final Res ult Performing Organization Address [facility] Co de Phone Number ANA [facility] [address] [facility] [place] [address] * PSA screen (02/12/2025 11:28 AM CDT) [...] data last revised 21. Testing performed by: [facility], [address] [place] [address]., [id number] Blood 02/12/2025 11:2 8 AM CDT 02/12/2025 5:22 PM CDT Mahesh Redding CHEESE FACTORY WORKER LAB BLOOD ORDERABLES F inal Result Performing Organization Address [facility] Co de Phone Number ANA [facility] [place] [address] from Last 3 Months Insurance MEDICARE [facility] MEDICARE MEDICARE [facility] MEDICARE [facility] Advance Directives For more information, please contact: [phone] * Full Code (Latest Code Status on File) Date Activated Date Inactivated Comments 05/25/2024 4:12 PM 05/29/2024 5:35 PM * Full Code Date Activated Date Inactivated Comments 05/09/2024 10:00 AM 05/10/2024 4:55 AM * Full Code Date Activated Date Inactivated Comments 05/26/2018 5:17 PM 05/27/2018 3:32 PM Care Teams Registered Dietitian Relationship Specialty Start Date End Date David Vegas MD [address] [facility] [address] [place] [address] PCP - General Internal Medicine 08/09/24 Deysi Hein NP [address] [place] [address] [place] [address] Nurse Practitioner Internal Medicine 08/07/24
--- OUTSIDE RECORDS SUMMARY | 2025-03-31 18:07 | XMS_ITS | Encounter Summary ---
Author Organization [facility] Address [address] [place] [address] Phone Care Team Providers Care Cardiologist Name Role Phone Deysi Hein NP Unavailable David Vegas MD Primary Care Provider [phone] Encounter Details Date Type Department Care Team (Late st Contact Info) Description 02/14/2025 Results Follow-Up [facility] Urology [address] [facility] [address] [place] [address] Mahesh Redding NP [address] [facility] [place] [address] PSA screen Social History Tobacco [...] on file 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
--- OUTSIDE RECORDS SUMMARY | 2025-03-31 18:07 | XMS_ITS | Encounter Summary ---
Author Organization [facility] Healthcare Address [address] [place] [address] Care Team Providers Care Hris Analyst Name Role Phone Lucille Crawford MD Primary Care Provider Lucille Crawford MD Primary Care Provider David Vegas MD Primary Care Provider [phone] Deysi Hein NP Unavailable David Vegas MD Primary Care Provider [phone] Encounter Details Date Type Department Care Team (Late st Contact Info) Description 08/04/2020 Telephone [facility] [address] [place] [address] [place], Social History Tobacco [...] on file 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 01/30/2023 01/31/2023 04/30/2023 3:[address] COVID: Suspected 05/17/2023 05/17/2023 05/17/2023 1:17 PM ASSEMBLY PERSON documented as of this encounter Care Teams Hris Analyst Relationship Specialty Start Date End Date Lucille Crawford MD PCP - General Internal Medicine 05/08/19 07/17/23 Lucille Crawford MD PCP - General Internal Medicine 07/18/23 08/06/24 David Vegas MD [address] [place] [address] PCP - General Internal Medicine 08/07/24 08/08/24 David Vegas MD [address] [place] [address] PCP - General Internal Medicine 08/09/24 Deysi Hein NP [address] [place] [address] Nurse Practitioner Internal Medicine 08/07/24 documented as of this encounter
--- OUTSIDE RECORDS SUMMARY | 2025-03-31 18:07 | XMS_ITS | Clinical Summary ---
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 Active triamcinolone acetonide (KENALOG) 0.1 % CreamIndications [...] sleep apnea 04/12/2017 Overview (04/12/2017): See consultation [facility] scanned 04/12/17. 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 Shelf Expiration Date Model / Serial / Lot Abdominal Aorta Stent-01/22/2010 Implanted:01/23/20 10 (Quantity not on file) Stent / TFLE 20-56 / Description:Zenith Endovascu lar Graft by [employer] -Product Catalog #[id number] 14-73 TFLE 20-56 09/17/16 Insurance MEDICARE PART A AND B [facility] [id number] RX [employer] Commercial Advance Directives For more information, please contact: [phone] * Full Code (Latest Code Status on File) Date Activated Date Inactivated Comments 01/31/2018 4:09 PM 02/02/2018 11:54 AM * Full Code Date Activated Date Inactivated Comments 03/21/2015 9:30 AM 03/21/2015 1:21 PM Care Teams Structural Mill Supervisor Relationship Specialty Start Date End Date Lucille Crawford MD PCP - General Internal Medicine 08/03/20
--- OUTSIDE RECORDS SUMMARY | 2025-03-31 18:07 | XMS_ITS | Encounter Summary ---
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 01/30/2023 01/31/2023 04/30/2023 3:[address] COVID: Suspected 05/17/2023 05/17/2023 05/17/2023 1:17 PM CNC SERVICE TECHNICIAN documented as of this encounter Care Teams [employer] Music Teacher Relationship Specialty Start Date End Date Lucille Crawford MD PCP - General Internal Medicine 05/08/19 07/17/23 Lucille Crawford MD PCP - General Internal Medicine 07/18/23 08/06/24 David Vegas MD [address] [place] [address] PCP - General Internal Medicine 08/07/24 08/08/24 David Vegas MD [address] [place] [address] PCP - General Internal Medicine 08/09/24 Deysi Hein NP [address] [facility] [address] [place] [address] Nurse Practitioner Internal Medicine 08/07/24 documented as of this encounter
[2025-03-31 18:16] VITALS: BP 171/51; PULSE 77; RESP 20; O2SAT 98
--- NOTE | 2025-03-31 18:27 | ECG_ITS ---
Test Date: 2025-03-31 18:32:59 Measurements Intervals [place] Rate: 72 P: 70 WY: 185 QRS: 31 QRSD: 102 T: 82 QT: 392 QTc: 431 Interpretive Statements SINUS RHYTHM NONSPECIFIC T-WAVE ABNORMALITY No previous ECG available for comparison Electronically Signed On 04-01-2025 18:28:32 NIGHT CLERK by Deborah Marroquin M.D.
[2025-03-31 18:47] VITALS: BP 170/86; PULSE 73; RESP 20; O2SAT 96
[2025-03-31 19:03] LABS: Hematocrit 53.2 % (37.0-46.0); Hemoglobin 16.3 g/dL (12.4-15.3); Immature Granulocyte Percent A 0.4 % (0.0-0.0); Lymphocytes Absolute Auto 0.81 K/mm3 (1.10-4.50); Mean Corpuscular HGB Conc 30.6 g/dL (32-36); Mean Corpuscular Hemoglobin 32.1 pg (27.0-31.0); Mean Corpuscular Volume 104.9 fL (78.0-102.0); Nucleated Red Blood Cells Absolute Auto 0.00 K/mm3 (0.00-0.00); Nucleated Red Blood Cells Perc 0.0 % (0-0.0); Platelet Count Result 188 K/mm3 (150-420); Red Blood Count 5.07 M/mm3 (4.70-6.10); White Blood Count 5.4 K/mm3 (4.8-10.8)
--- NOTE | 2025-03-31 19:10 | PC.NURSE ---
On 03/31/25, the student, [JOSUE NEWTON ], provided care and [facility] on this patient. I have reviewed the student's documentation and agree with the findings.
[2025-03-31 19:18] LABS: INR 1.0; Partial Thromboplastin Time 29.5 Sec (23.9-30.70); Prothrombin Time 10.8 Seconds (9.50-12.1)
[2025-03-31 19:19] LABS: Alanine Aminotransferase 17 U/L (6-50); Albumin Level 4.6 g/dL (3.5-5.1); Alkaline Phosphatase 89 U/L (38-126); Anion Gap 12 mmol/L (4-12); Aspartate Amino Transferase 25 U/L (17-59); Bilirubin,Total 2.6 mg/dL (0.2-1.3); Blood Urea Nitrogen 21 mg/dL (9-20); Calcium 9.5 mg/dL (8.4-10.2); Carbon Dioxide 21 mmol/L (22-30); Chloride 112 mmol/L (98-107); Creatine Kinase 113 U/L (55-170); Estimated CRCL calculation 43 ml/min; Estimated Glomerular Filt Rate 50; Glucose 113 mg/dL (65-110); Osmolality Calculated 304 mOsm/kg (285-295); Potassium 4.1 mmol/L (3.4-5.0); Sodium 145 mmol/L (137-145); Total Protein 7.3 g/dL (6.3-8.2)
[2025-03-31 19:30] LABS: Troponin I < 0.012 ng/mL (0.000-0.034)
== END 2025-03-31 19:08 | disposition short-term general hospital (02) ==
PROVIDERS: Emergency Provider Emergency Medicine; PCP Internal Medicine
DX: S06.5XAA Traumatic subdural hemorrhage with loss of consciousness status unknown, initial encounter (principal); I10 Essential (primary) hypertension; E78.5 Hyperlipidemia, unspecified; I48.91 Unspecified atrial fibrillation; Z79.899 Other long term (current) drug therapy; Z79.01 Long term (current) use of anticoagulants; W10.9XXA Fall (on) (from) unspecified stairs and steps, initial encounter
CPT/HCPCS: 36415; 70450; 71046; 72070; 72125; 73502; 80053; 82550; 84484; 85025; 85610; 85730; 93005; 99291